=== PATIENT | male | born 1960 | race Caucasian/White ===

== ENCOUNTER 2018-05-01 10:41 | Inpatient (IN) | payer MEDICARE ==
[~2018-05-01] VITALS: Ht 182.9 cm; Wt 61.8 kg
[~2018-05-01 10:41] MED LIST: AMPYRA; AUBAGIO14 MG PO; BECL40OI INH; BETASERON SC; CITA20 PO; CYAN1000 PO; CYCL10 PO; DIAZ10 PO; DIAZ5 PO; HYDACE5 PO; MEDICAL MARIJUANA; METPHE10 PO; METPHE20 PO; MORP30 PO; NUVIGIL; OLAN10; OXYACE5T PO; PERCOCET PO; PRAV20; PREG100 PO; RXCLIN PO; RXOXYACE PO; Zyprexa10 MG PO; [UNRECOGNIZED DRUG - OTHER]; [UNRECOGNIZED DRUG - OTHER] INJ
[2018-05-01 13:00] LABS: BASOPHILS ABSOLUTE AUTO 0.07 K/mm3 (0.00-0.23); BASOPHILS PERCENT AUTO 1 % (0-2); EOSINOPHILS ABSOLUTE AUTO 0.09 K/mm3 (0.00-0.68); EOSINOPHILS PERCENT AUTO 1 % (0-6); Hemoglobin 15.6 g/dL (13.5-17.5); IMMATURE GRAN ABSOLUTE AUTO 0.04 K/mm3 (0.00-0.10); IMMATURE GRAN PERCENT AUTO 0 % (0-1); LYMPHOCYTES ABSOLUTE AUTO 2.07 K/mm3 (0.84-5.20); LYMPHOCYTES PERCENT AUTO 19 % (21-46); MONOCYTES ABSOLUTE AUTO 0.76 K/mm3 (0.16-1.47); MONOCYTES PERCENT AUTO 7 % (4-13); Mean Corpuscular HGB 31.1 pg (26.0-34.0); Mean Corpuscular HGB Conc 33.9 g/dL (31.5-36.5); Mean Corpuscular Volume 92 fL (80-100); Mean Platelet Volume 8.8 fL (9.1-12.4); NEUTROPHILS ABSOLUTE AUTO 7.66 K/mm3 (1.96-9.15); NEUTROPHILS PERCENT AUTO 72 % (41-73); Platelet Count 438 K/mm3 (150-400); RDW Coefficient Variation 12.3 % (11.7-14.2); RDW Standard Deviation 41.6 fL (35.1-46.3); Red Blood Cell Count 5.02 M/mm3 (4.30-5.90); White Blood Cell Count 10.69 K/mm3 (4.00-11.30)
--- NOTE | 2018-05-01 13:00 | NUR ---
INITIAL PAL CARE VISIT: Visit to pt in ER#14 after getting current status and clinical info from pt's RN and ER Dr. Pt corroborates information I received, stating that he has struggled with MS and its progression for years. He fell at home a month ago after his feet became tangled in a phone cord when he got up from his desk. He pulled the phone cord out of the wall in the fall and could not call for help. His father found him down on the floor two days later and pt convinced family not to bring him to a dr for eval at that time. Prior to the fall pt was independent with a walker but has had increased loss of balance and strenght, even before the fall. Since the fall pt has been unable to walk, bathe, toilet or feed himself. Family and friends have been helping to some degree with keeping him fed. Today they all arrived at his home in an intervention style way and brought him to the ER for help. Pt is self-admittedly stubborn and has refused care he needed. He states he does not have a PCP currently and the last Dr he saw was Dr Davis. He states he has not been on any of his MS meds because they didn't seem to help. He uses smoked cannibis for pain and anxiety relief. He has been on opiodes in the past but does not want to take them because he feels he nearly overdosed on them a number of times when he took them as directed. He has applied for medicaid and it sounds like a State worker saw him at his home on Wednesday. He understood her to say that he qualified for 4 hours of care daily but he has no idea when that was set to begin. His ER room had overpowering foul odor of old urine. Pt is thin, frail appearing and very weak in moving extremities. He reports 6/10 pain all over. He had his sweats on and had a large amt of stool and urine caked on him and his clothing. I requested help with cleaning him and his clothing. BULL ruiz washed his clothing and gave him a bed bath. BULL ruiz also noted difuse skin breakdown all along his right side that in her description would be multiple stage 1 - stage 4 wounds and abraisions. She also reported nails growing over and curling on the underside of pt's toes. I spent 40 minutes talking with pt about his current condition, disease process and MS progression. He acknowledges he's been in denial about his MS. He was tearful in talking about his terror with falls at home, grief r/t loss of independence and having his own apartment. I encouraged him to work closely with a PCP and his neurologist for problem solving as his disease progressed and to be working on a Plan A, B, & C to include considering placement in a [facility] or facility that he could have some peace knowing he'd have help if he needed it. Pt has parents locally and friends but no one that could care for him in his home or theirs, he states. If pt is admitted, I would recommend PT/OT evals BETHEL and treatment in attempt to return Bill to his pre-fall function of semi-independent. If pt does not qualify for an in-pt stay I would recommend HH PT/OT and RN for rehab services and wound care, and also a LEARNING AND DEVELOPMENT SPECIALIST to assist with obtaining assistance and researching community resources he may be eligible for and a GREASE PACKER for personal care. Pt needs a podiatry referral whether he is admitted or not to assist with foot care, especially if he is to regain ambulation/function. I stressed to pt that he must obtain a PCP for his ongoing care needs. Time spent just listening to pt express his fears and grief. If pt is admitted, Pal Care will follow to further address advanced care planning, completing an AD/POLST and s/s management.
[2018-05-01 13:13] LABS: Alanine Aminotransfer (ALT/SGP 13 U/L (12-78); Albumin, Blood 3.2 g/dL (3.4-5.0); Albumin/Globulin Ratio 0.8 (0.8-1.8); Alk Phos 112 U/L (50-136); Anion Gap 10 mmol/L (6-16); Aspartate Aminotrans (AST/SGOT 9 U/L (12-37); Bilirubin, Total 0.3 mg/dL (0.1-1.0); Blood Urea Nitrogen 13 mg/dL (8-24); Bun/Creatinine Ratio 22.8 (12.0-20.0); CO2, Blood 25 mmol/L (21-32); Calcium, Blood 8.7 mg/dL (8.5-10.1); Chloride, Blood 106 mmol/L (98-108); Creatinine, Blood 0.57 mg/dL (0.60-1.20); Globulin, Blood 3.8 g/dL (2.2-4.0); Glomerular Filtration Rate >60 (60-); Glucose, Blood 97 mg/dL (70-99); Magnesium, Blood 2.2 mg/dL (1.6-2.4); Potassium, Blood 3.9 mmol/L (3.5-5.5); Sodium, Blood 141 mmol/L (136-145)
--- NOTE | 2018-05-01 15:11 | NUR ---
Report to DONALD Coronel on summary of my note and recommendations given by phone.
[2018-05-01 15:56] LABS: Source, Urine Voided
[2018-05-01 16:08] LABS: Bilirubin, Urine Neg (Neg); Blood, Urine 4+ (Neg); Glucose Qualitative, Urine Neg (Neg); Ketones, Urine Neg (Neg); Leukocyte Esterase, Urine Neg (Neg); Nitrite, Urine Neg (Neg); Protein, Urine Neg (Neg); Specific Gravity, Urine 1.015 (1.003-1.022); Urobilinogen, Urine NORM (Normal)
[2018-05-01 16:29] LABS: Appearance, Urine Clear (Clear); Color, Urine Yellow (P-Yellow)
[2018-05-01 16:31] LABS: Bacteria Not Seen /hpf; Red Blood Cells, Urine 25-50 /hpf (0-2); Squamous Epithelial Cells Rare /hpf (Few); White Blood Cells, Urine Not Seen /hpf (0-5)
--- NOTE | 2018-05-01 19:44 | NUR ---
ADMIT ED ADMIT AT SHIFT CHANGE. PATIENT SETTLED IN TO ROOM. DENIES SHORTNESS OF BREATH, NAUSEA. REQUEST FOR PAIN MEDICATION PASSED ON TO NOC NURSE IN REPORT. CALL LIGHT IN REACH.
--- NOTE | 2018-05-01 22:21 | NUR ---
WOUNDS PT HAS SEVERAL WOUNDS AND PRESSURE ULCERS THROUGHOUT BODY. BACK IS SCATTERED WITH SCABS AND OPEN WOUNDS. STAGE 3 PRESSURE ULCER TO COCCYX. TWO MORE PRESSURE ULCERS ON R HIP, STAGE 2 AND 3. WOUNDS CLEANED AND DRESSING. SEE PHOTO DOCUMENTATION.
[2018-05-02 05:50] LABS: Anion Gap 11 mmol/L (6-16); Blood Urea Nitrogen 13 mg/dL (8-24); Bun/Creatinine Ratio 20.5 (12.0-20.0); CO2, Blood 22 mmol/L (21-32); Calcium, Blood 8.7 mg/dL (8.5-10.1); Chloride, Blood 108 mmol/L (98-108); Creatinine, Blood 0.64 mg/dL (0.60-1.20); Glomerular Filtration Rate >60 (60-); Glucose, Blood 148 mg/dL (70-99); Sodium, Blood 141 mmol/L (136-145)
--- NOTE | 2018-05-02 06:33 | NUR ---
SHIFT SUMMARY: PT A NEW ADMIT AT START OF SHIFT. PT ADMIITED FOR PHYSICAL DECONDITIONING, WITH A 20 YR HX OF MS. PT REPORTEDLY IS BEDBOUND, INCONTINENT, AND HAS NOT BEEN ABLE TO COMPLETE ANY ADLs X1 MONTH. PT HAS SEVERAL PRESSURE ULCERS ON COCCYX AND BILATERAL HIPS, SEE PRIOR NOTE. WOUNDS CLEANED, DRESSED, AND PHOTO DOCUMENTED. Q2H REPOSITIONNIG. ATTENDS CHANGE Q 1-2 HRS. EGG CRATE MATTRESS PLACED. LIFT FOR TRANSFER. A&O X 4, TEARFUL AND UPSET WITH DISEASE PROCESS. PRN HYDRALAZINE ADMINISTERED 1X FOR BP OF 194/101. BP NOW 160/90. NS RUNNING @ 75 ML /HR. RESP E/U ON ROOM AIR. WILL CONT TO MONITOR AND PROVIDE CARE UNTIL PRESUMED BY ONCOMING RN.
--- NOTE | 2018-05-02 08:40 | NUR ---
PROVIDER CONSULT ORTHO CONSULT CALLED TO DR GARNER'S CELL PHONE.
--- NOTE | 2018-05-02 11:46 | NUR ---
Spiritual care visit conducted. Patient invited me into his room after I introduced myself and stated what department I am from. Therapeutic alliance was easily established and so patient openly shared about his 20 year yang with M.S., his Confucianism belief system and his struggle with depression. I listened empathically, I provided companionship, I reinforced helpful attitudes and practices, explored soureces of meaning and dignity, I provided a blessing. Patient responded well and showed signs of an elevated mood.
--- NOTE | 2018-05-02 14:26 | NUR ---
Pt visit this afternoon. Pt's parents Shawn and Hailey are present during visit. Pt reports a tolerable 3/10 pain and reports his pain is managed with current regimen. Engaged in therapeutic conversation about Pt's goals. Pt reports his goals are to return to [place] and live as independent as possible. He undersands that it will take some time to regain in strength. Pt's mother Hailey reports the Pt is set up through senior services and people with disabilities. He will recieve 4 hours a day of care. Instructed Hailey to ask block and case maker to re-evaluate his needs and hours. Instructed her that in Pt's current condition 4 hours a day may not be sufficiant. Hailey also reports the Pt has an advanced directive and she will bring in a copy of AD and POA. Pt and family report no other concerns at this time. Will remain available.
--- NOTE | 2018-05-02 19:09 | NUR ---
DR GARNER IN TO SEE PT TODAY, SEE HIS NOTES. NO ACUTE CHANGES NOTED THIS SHIFT. WILL CONTINUE TO MONITOR AND REPORT TO ONCOMING RN.
--- NOTE | 2018-05-02 22:39 | NUR ---
PERSONAL CARE BED BATH, WOUND CLEANING + DRSSING CHANGE, SRINATH CARE, BED CHANGE ALL COMPLETED AT THIS TIME WITH ASSISTANCE OF CHEF UNDER.
[2018-05-03 06:06] LABS: Anion Gap 9 mmol/L (6-16); Blood Urea Nitrogen 20 mg/dL (8-24); Bun/Creatinine Ratio 26.8 (12.0-20.0); CO2, Blood 23 mmol/L (21-32); Calcium, Blood 8.2 mg/dL (8.5-10.1); Chloride, Blood 110 mmol/L (98-108); Creatinine, Blood 0.75 mg/dL (0.60-1.20); Glomerular Filtration Rate >60 (60-); Glucose, Blood 93 mg/dL (70-99); Potassium, Blood 3.6 mmol/L (3.5-5.5); Sodium, Blood 142 mmol/L (136-145)
--- NOTE | 2018-05-03 07:09 | NUR ---
SHIFT SUMMARY: ATTEMPTED TO PLACE PT IN R SHOULDER IMMOBILIZER. PT COULD NOT TOLERATE THE IMMOBILIZER AND REFUSED TO WEAR IT AFTER A FEW HRS. TREATED 1X FOR PAIN WITH IV TORADOL. VSS. RESP E/U ON RA. PERSONAL CARE AND WOUND CARE COMPLETE, SEE PRIOR NOTE. Q2H TURNS IMPLEMENTED. SALINE LOCKED AT THIS TIME. WILL CONT TO MONITOR AND PROVIDE CARE UNTIL PRESUMED BY ONCOMING RN.
--- NOTE | 2018-05-03 16:45 | NUR ---
Pal Care visit: Pt known to me from his ER/admit visit two days ago. He is smiling in bed and very pleased with his progress with PT today. He was able to stand w/assist for the first time since his fall a month ago and he is feeling very accomplished about that. He showed me the bed exercises PT had given him. We talked at length about his strengths and ongoing health maintenance needs for improved quality of life. We discussed advanced care planning for when he could no longer live independently due to the progression of his MS. Pt's friends had cleaned his apartment and purchased a new lift chair for him. He is enthusiasticly excited about the plan for in patient rehabilitation and eventual return to home, hopefully being able to walk again. He states he is going to take full advantage of all the opportunities being given to him. We discussed his s/s management and he is pleased to be getting relief with toradol and tylenol. He mentioned his HTN and need for f/u and management of that. He said someone is helping him get a PCP. I case conferenced on his plan of care and needs earlier with Lulu Robledo and his hospitalist.
--- NOTE | 2018-05-03 18:30 | NUR ---
PT C/O PAIN AT BREAKFAST AND DINNER TIME, SAYS SPOILS HIS APPETTITE. MEDICATED WITH PO TYLENOL AND IV TORADOL, SEE EMAR, TO GOOD EFFECT, PT EXPERIENCED PAIN RELIEF AND ABLE TO EAT. NO ACUTE CHANGES NOTED THIS SHIFT, WILL CONTINUE TO MONITOR AND REPORT TO ONCOMING RN
--- NOTE | 2018-05-04 02:37 | NUR ---
-LATE ENTRY- PER PALLIATIVE CARE REPORT AND PHYSICIAN PROGRESS NOTE FROM TODAY PT WAS REPORTED TO BE IN GOOD SPIRITS AND EXCITED ABOUT STARTING REHAB TO REGAIN HIS STRENGTH. WHEN I FIRST ENTERED PT'S ROOM AT START OF SHIFT PT WAS TEARFUL AND VERY DEPRESSED. PT EXPRESSED CONCERN REGARDING THE PROGRESSION OF HIS MS. PT STATED "ITS BEEN 20 PLUS YEARS OF PAIN AND I DON'T KNOW HOW MUCH LONGER I CAN DEAL WITH ALL OF THIS". PT CALLED HIS MOTHER JUAN C ON THE PHONE "BECAUSE SHE HELPS ME RELAX AND FEEL BETTER". THIS RN SPOKE WITH JUAN C ON THE PHONE WITH PERMISSION OF PT. JUAN C EXPRESSED CONCERN REGARDING PT'S PAIN MEDS AND STATED IN THE PAST PT HAS HAD REACTIONS TO DIFFERENT PAIN MEDS BY BECOMING DEPRESSED. EXPLAINED TO PT'S MOTHER THAT PT WAS RECIEVING IV TORADOL AND TYLENOL FOR PAIN WHICH WAS HELPING PT ADEQUATELY. PT HAD ALSO RECIEVED TEMAZEPAM THE LAST 2 NIGHTS BEFORE BED TO HELP WITH SLEEP. PT DOES NOT NORMALLY TAKE THESE MEDS AT HOME AND ONLY USES MEDICAL MARIJUANA FOR PAIN CONTROL. PT'S MOTHER EXPRESSED CONCERN THAT MAYBE TORADOL OR TEMAZEPAM WAS CAUSING PT'S CHANGE IN MOOD. SPOKE WITH HALLE GALLEGOS REGARDING THIS, WHO GAVE ORDER TO HOLD ANY FURTHER DOSES OF TEMAZEPAM AND TO CONTINUE MONITORING PT AT THIS TIME. THIS RN CALLED PT'S MOTHER JUAN C BACK REGARDING MD ORDERS, EXPLAINED THAT WE WOULD HOLD THE TEMAZEPAM AND THAT PT WAS MORE CALM AT THAT TIME. JUAN C GRATEFUL FOR CALL BACK. AT THIS TIME PT IS CALM AND RESTING. WILL PASS INFORMATION OFF TO DAY SHIFT RN AND CONTINUE TO MONITOR.
--- NOTE | 2018-05-04 04:47 | NUR ---
CARPENTER GENERAL SUMMARY PT AAOX4 AND COOPERATIVE WITH CARE. PT DEPRESSED AND UPSET AT START OF SHIFT, SEE PREVIOUS NOTE FOR DETAILS. SINCE SPEAKING WITH HIS MOTHER PT HAS BEEN CALM AND MUCH MORE POSITIVE. PT STATES "I'M NOT SURE WHY I WAS SO DOWN ON MYSELF BUT I KNOW I NEED TO KEEP FIGHTING THIS MS AND DOING MY BEST TO REGAIN MY STRENGTH". PT HAS RESTED MOST OF THE NIGHT WITH HELP REPOSITIONING Q2H OR PT ALLOWS. TREATED FOR PAIN X1 WITH TORADOL AND TYLENOL WITH GOOD PAIN RELIEF. VSS, WILL CONTINUE TO MONITOR.
[2018-05-04 05:40] LABS: Anion Gap 8 mmol/L (6-16); Blood Urea Nitrogen 17 mg/dL (8-24); Bun/Creatinine Ratio 22.7 (12.0-20.0); CO2, Blood 25 mmol/L (21-32); Calcium, Blood 8.4 mg/dL (8.5-10.1); Chloride, Blood 107 mmol/L (98-108); Creatinine, Blood 0.75 mg/dL (0.60-1.20); Glomerular Filtration Rate >60 (60-); Glucose, Blood 87 mg/dL (70-99); Potassium, Blood 3.9 mmol/L (3.5-5.5); Sodium, Blood 140 mmol/L (136-145)
--- NOTE | 2018-05-04 18:19 | NUR ---
SHIFT SUMMARY PT UP TO CHAIR THIS AFTERNOON WITH PHYSICAL THERAPY. PT SAT IN CHAIR FOR 2 HOURS OR SO. PT REPORTS FEELING BETTER UP IN CHAIR. MEDICATED FOR RIGHT SHOULDER PAIN X2 THIS SHIFT. PAIN MEDICATION EFFECTIVE AND PT WAS SLEEPING THIS AFTERNOON AFTER RECEIVING PAIN MEDICATION. PT HAS HAD A GOOD APPETITE. NO ACUTE CHANGES THIS SHIFT. CALL LIGHT IN REACH. WILL CONTINUE TO MONITOR AND REPORT TO ONCOMING RN.
--- NOTE | 2018-05-05 04:50 | NUR ---
THREAD WINDER SUMMARY NO ACUTE CHANGES THIS SHIFT. PT AAOX4 AND PLEASANT/COOPERATIVE WITH CARE. GOOD PAIN CONTROL WITH NEW ULTRAM STARTED DURING DAY SHIFT. PT REPORTS ALMOST NO PAIN EVEN WHEN REPOSITIONING. PT REMAINS INCONTINENT, REQUIRING FREQUENT ATTENDS CHANGES. PT ALSO REPOSITIONED ALLOWED BY PT. VSS, WILL CONTINUE TO MONITOR.
[2018-05-05] MEDS ORDERED: AMLO5 PO (10:41)
[2018-05-05] MEDS ORDERED: NAPR500 PO (10:42)
[2018-05-05] MEDS ORDERED: TRAM50 PO (10:43)
[2018-05-05] MEDS ORDERED: LISI5 PO (10:44)
--- NOTE | 2018-05-05 11:36 | NUR ---
WOUNDS REDRESSED PT SACRAL & HIP WOUNDS REDRESSED & NEW PICTURES TAKEN. WILL CONTINUE TO MONITOR.
--- NOTE | 2018-05-05 15:06 | NUR ---
REPORT CALLED TO MISSY JOHANSEN NURSE, ROBERTO, CALLED & GIVEN REPORT. NURSE STATED SHE HAD NO FURTHER QUESTIONS & A CALL BACK NUMBER WAS LEFT IF NEEDED. PT IN STABLE CONDITION WITH VSS.
--- NOTE | 2018-05-05 15:55 | NUR ---
PT DISCHARGED PT DISCHARGED AT 1550. PT IN STABLE CONDITION WITH VSS. REPORT CALLED TO MISSY JOHANSEN. PT SENT WITH DC PACKET & HARD SCRIPT. IV REMOVED & INTACT.
== END 2018-05-05 15:44 | DRG 563 ==
LOC: ER 10:41 → MEDS 10:42 → ENPENDDIS 05-05 11:16 → MEDS 05-05 15:44
PROVIDERS: Emergency Medicine; Nurse Practitioner Acute Care; ADMIT Internal Medicine
DX: S42.213A Unspecified displaced fracture of surgical neck of unspecified humerus, initial encounter for closed fracture (principal); R64 Cachexia; G35 Multiple sclerosis; Y92.9 Unspecified place or not applicable; Z74.01 Bed confinement status; G89.29 Other chronic pain; R53.81 Other malaise; L89.92 Pressure ulcer of unspecified site, stage 2; R32 Unspecified urinary incontinence; E86.0 Dehydration; Z68.20 Body mass index [BMI] 20.0-20.9, adult; I10 Essential (primary) hypertension; W18.30XA Fall on same level, unspecified, initial encounter; R15.9 Full incontinence of feces
CPT/HCPCS: 36415; 71046; 73030; 80048; 80053; 81001; 83735; 85025; 96361; 96374; 96375; 97110; 97112; 97163; 97166; 97530; 97535; 99284-25; G0378; J0360; J1885; J2930; J3010; J7030

== ENCOUNTER 2020-04-29 09:14 | Inpatient (IN) | payer MEDICARE, OTHER ==
[~2020-04-29] VITALS: Ht 182.9 cm; Wt 61.9 kg
[~2020-04-29 09:14] MED LIST changes: +AMLO5 PO; +LISI5 PO; +NAPR500 PO; +TRAM50 PO
[2020-04-29 09:58] LABS: BASOPHILS ABSOLUTE AUTO 0.07 K/mm3 (0.00-0.23); BASOPHILS PERCENT AUTO 1 % (0-2); EOSINOPHILS ABSOLUTE AUTO 0.01 K/mm3 (0.00-0.68); EOSINOPHILS PERCENT AUTO 0 % (0-6); Hematocrit 48.1 % (37.0-53.0); Hemoglobin 16.5 g/dL (13.5-17.5); IMMATURE GRAN ABSOLUTE AUTO 0.04 K/mm3 (0.00-0.10); IMMATURE GRAN PERCENT AUTO 0 % (0-1); LYMPHOCYTES ABSOLUTE AUTO 1.54 K/mm3 (0.84-5.20); LYMPHOCYTES PERCENT AUTO 11 % (21-46); MONOCYTES ABSOLUTE AUTO 1.16 K/mm3 (0.16-1.47); MONOCYTES PERCENT AUTO 9 % (4-13); Mean Corpuscular HGB Conc 34.3 g/dL (31.5-36.5); Mean Corpuscular Volume 93 fL (80-100); Mean Platelet Volume 9.6 fL (9.1-12.4); NEUTROPHILS ABSOLUTE AUTO 10.68 K/mm3 (1.96-9.15); NEUTROPHILS PERCENT AUTO 79 % (41-73); Platelet Count 384 K/mm3 (150-400); RDW Coefficient Variation 11.7 % (11.7-14.2); RDW Standard Deviation 40.3 fL (35.1-46.3); Red Blood Cell Count 5.15 M/mm3 (4.30-5.90)
[2020-04-29 10:16] LABS: Alanine Aminotransfer (ALT/SGP 23 U/L (12-78); Albumin, Blood 3.8 g/dL (3.4-5.0); Alk Phos 78 U/L (50-136); Aspartate Aminotrans (AST/SGOT 18 U/L (12-37); Bilirubin, Total 0.6 mg/dL (0.1-1.0); Blood Urea Nitrogen 14 mg/dL (8-24); Bun/Creatinine Ratio 22.5 (12.0-20.0); CO2, Blood 23 mmol/L (21-32); Calcium, Blood 8.7 mg/dL (8.5-10.1); Creatinine, Blood 0.62 mg/dL (0.60-1.20); Globulin, Blood 3.7 g/dL (2.2-4.0); Glomerular Filtration Rate >60 (60-); Glucose, Blood 114 mg/dL (70-99); Total Protein, Blood 7.5 g/dL (6.4-8.2); Troponin I 0.019 ng/mL (0.000-0.040)
[2020-04-29 10:20] LABS: Anion Gap 9 mmol/L (6-16); Chloride, Blood 108 mmol/L (98-108); Sodium, Blood 140 mmol/L (136-145)
--- NOTE | 2020-04-29 17:57 | NUR ---
SHIFT SUMMARY PT ADMITTED TO UNIT FROM THE ER. VS STABLE. PT ON 10L VIA OXYMIZER UPON ADMISSION AND NOW ON 6L. DR. POLANCO IN TO PLACE THORAVENT TO SUCTION. LS INCREASING TO LLL. HR SINUS TACH. BP STABLE. PT COMPLAINS OF PAIN TO "LUNGS" SINCE CHEST TUBE PLACED TO SUCTION. PT MEDICATED PER EMAR. PT INCONTINENT OF BOWEL AND BLADDER. ATTENDS IN PLACE AND DRY AT THIS TIME. PT ABLE TO REPOSITION HIMSELF, BUT ENCOURAGED TO DO SO. WILL CONTINUE TO MONITOR AND REPORT TO ONCOMING RN. CALL LIGHT IN REACH.
--- NOTE | 2020-04-30 04:37 | NUR ---
SHIFT SUMMARY NO ACUTE CHANGES THIS SHIFT. VSS. AXO. ON 3L OXYMIZER WITH SPOT RANGING FROM 92% - 96%. BREATH SOUNDS AUSCULTATED T/O L LUNG. THORAVENT REMAINS TO [id number] SUCTION. PAIN ASSOCIATED WITH L LUNG CONTROLLED WITH PAIN MEDS PER EMAR. INCONTINENT TO BASELINE, STAFF ASSISTING WITH THIS. OTHERWISE, PT RESTING OFF AND ON T/O SHIFT. WILL CONTINUE TO MONITOR UNTIL SHIFT CHANGE.
--- NOTE | 2020-04-30 04:42 | NUR ---
SHIFT SUMMARY NO ACUTE CHANGES THIS SHIFT. VSS. REMAINAS ON RA. MOTHER IN ROOM WITH PERMISSION - CAREGIVER. CELLULITIS REDNESS TO R LEG REMAINS WITHIN MARKER BOUNDARIES DRAWN YESTERDAY. LITTLE PAIN REPORTED BY PT TO THIS AREA. PT UP TO BATHROOM A FEW TIMES THIS SHIFT BUT HAS OTHERWISE BEEN RESTING QUIETELY. USES CALL LIGHT APPROPRIATELY. ELIUD LCONTINUE TO MONITOR UNTIL SHIFT CHANGE.
[2020-04-30 12:14] LABS: Hematocrit 45.1 % (37.0-53.0)
[2020-04-30 12:28] LABS: Anion Gap 6 mmol/L (6-16); Blood Urea Nitrogen 20 mg/dL (8-24); Bun/Creatinine Ratio 32.6 (12.0-20.0); CO2, Blood 26 mmol/L (21-32); Calcium, Blood 8.4 mg/dL (8.5-10.1); Chloride, Blood 109 mmol/L (98-108); Creatinine, Blood 0.61 mg/dL (0.60-1.20); Glomerular Filtration Rate >60 (60-); Glucose, Blood 88 mg/dL (70-99); Sodium, Blood 141 mmol/L (136-145)
--- NOTE | 2020-04-30 18:12 | NUR ---
SHIFT SUMMARY PT ALERT AND ORIENTED. VS STABLE. PT TITRATED TO 2L NC WITH SATS REMAINING ABOVE 90%. BP STABLE. HR NSR. TELEMETRY DC'D THIS SHIFT. PT MEDICATED FOR PAIN NEEDED AND REPOSITIONED Q2H. CHEST TUBE TO SUCTION. WILL CONTINUE TO MONITOR AND REPORT TO ONCOMING RN CALL LIGHT IN REACH.
--- NOTE | 2020-05-01 05:27 | NUR ---
SHIFT SUMMARY NO ACUTE CHANGES THIS SHIFT. VSS. AXO. ON 2LNC, SPO2 >94%. THORAVENT REMAINS IN PLACE, SECURE, SUCTION TO [id number]. PT TOLERATING OK WITH BREAKTHROUGH PAIN THAT MEDS PER EMAR HELP BUT DO NOT FULLY COVER. PT WITH ATTENDS CHECKS BY STAFF DUE TO INCONTINENCE. OTHERWISE, PT RESTING IN ROOM AND USES CALL LIGHT APPROPRIATELY. ELIUD LCONTINUE TO MONITOR.
--- NOTE | 2020-05-01 08:38 | NUR ---
TRANSFER TO MEDICAL: PT ALERT ADN ORIENTED X4. ON 2 L NASAL CANNULA SATING ABOVE 92%. DENIES CHEST PAIN. TELLS ME OF LUNG PAIN HE HAS BEEN HAVING OFF AND ON AND THAT CURRENTLY THIS MORNING THE PAIN IS NOT PRESENT DUE TO PAIN MEDS HE RECIEVED EARLIER. LACK OF FINE MOTOR SKILLS, HX OF MS. WEAKNESS THROUGHOUT. WHEELCHAIR BOUND AT HOME. ON BEDREST. Q2 TURNING. L UPPER THORAVENT HOOKED UP TO CONTINUOUS SUCTION. NO DRAINAGE THIS AM. DRESSING C/D/I. LUNG SOUNDS HEAD THROUGHOUT, DIMINISHED IN LLL. L AC IV SALINE LOCKED. WILL REPORT OFF TO MEDICAL FLOOR AND TRANSFER PATIENT.
--- NOTE | 2020-05-01 16:08 | NUR ---
1250 PT C/O LIGHT SOB. CHEST TUBE IS PRESENTLY ON WATER SOME BUBBLES WHEN EXHALE IN 2ND CHAMBER. CALLED DR MIJARES, SHE STATES TURN ON TO CONTINUOUS SUCTION AGAIN. CANCEL PENDING XRAY. DONE. 1330 PT STATES FEELS MUCH BETTER. NOT FEELING SOB.
--- NOTE | 2020-05-01 18:14 | NUR ---
PT SOMETIMES PLEASNT AND SOMETIMES ANGRY . STATES ABOUT MS CONDITION OVER 25 YRS. PAIN MANAGED WITH AVAIL MEDS. PT STATED TONITE THAT IS TIRED OF THIS , WANTS ME TO GET HIM WHEELCHAIR AND HE WILL TAKE SELF HOME. EXPLAINED NEED FOR CHEST TUBE. STATES DOES NOT CARE. CALLED DR MARIEE. SHE TO DISCUSS. SPIRITUAL CARE WAS CALLED IN TO SEE HIM. RECOMMENDING PALIATIVE CARE TO SEE ALSO. PALIATIVE CARE HERE AT THIS TIME. HE STATES CANNOT GET HELP. WANTS RIDE TO GO HOME. BED IN LOW POSITION, CALL LITE IN REACH, CALLS APPROP
--- NOTE | 2020-05-01 18:49 | NUR ---
Mr. gomes was quite distraught, tearful, and talkative. "I can't take this anymore!" "When will this end?" He appeared anxious and angry. He told me he wants to go home, but none of his care-gvers will pick him up. He is very upset about this. When asked why he wants to go home, he states, "So I can take myself out." Asked to clarify and he told me he wants to shoot himself in the head. Why asked why he is so miserable, he cannot tell me specifics. "I'm just tired of all this. Its been 25 years of it! I can't do it anymore." He states that he understands his illness is progressive. He does not want comfort care or hospice b/c "this would upset my dad too much." When I pointed out that his suicide would be a terrible thing for his dad, he yelled "I don't know what to do! No one will help me." I listened and affirmed his emotions. He did not calm or appear comforted at all. He did not appear to want anything from me but to be heard. Informed RN of pt's suicidal statements. I suggested a palliative care consult for symptom management. Pt smokes pot regularly. I can't help but wonder if something for anxiety would be beneficial. I will remain available.
--- NOTE | 2020-05-01 19:08 | NUR ---
Spoke with Dr Sosa and discussed case. Pt may benefit from supportive visit. Pt may be suicidal. Pt resting in bed upon arrival. Engaged in therapeutic listening as Pt discusses his current condition. Pt expresses frustration regarding his MS and is decline has had an impact on his mood. He states "I'm done, I can't do it anymore". Pt is requesting to be D/C home. Inquired about plan when he arrived home. Pt states "I will get high". Bedside RN Markie in to administer IV medication. Requested Pt to continue with conversation and asked what he would do after getting high. Pt states "I would slice my wrists, not side ways, but up and down". Continued therapeutic listening. Dr Sosa in to see Pt and offers therapeutic listening and validates concerns. Pt agreeable for this RN to visit tomorrow. Dr Sosa will place orders for Sucide watch and pysch consult. Palliative Care will remain available.
--- NOTE | 2020-05-01 19:21 | NUR ---
PT VERBALIZED SUICIDAL THOUGHTS. CALLED DR OLSON IN TO SEE. PLACED ON LOW LEVEL. WOOD HANDLER NOTIFIED. NEW ONCOMING RN NOTIFIED. PENDING ORDERS.
--- NOTE | 2020-05-02 07:13 | NUR ---
SHIFT SUMMARY PT IS A 60 Y/O MALE, ADMITTED FOR A L PNEUMOTHORAX WITH A CHEST TUBE IN PLACE TO LOW SUCTION. NO CREPITUS NOTED. PT IS A&O X 3, THOUGH WITHDRAWN AND DEPRESSED, AND REPEATEDLY STATING THAT "I NEED TO GET OUT OF HERE" AND "I WANT TO GO HOME". PT WAS PUT ON A LOW SUICIDE PRECAUTION AT THE END OF DAY SHIFT YESTERDAY. PT REPORTS HX OF MARIJUANA USE, AND STATES THAT "MARIJUANA WOULD BE ABLE TO TAKE CARE OF MY PAIN". PT WAS MEDICATED FOR PAIN Q4H WITH PRN FENTANYL AND OXYCODONE. NO C/O NAUSEA OR SOB. VITAL SIGNS STABLE. PT AWAKE THROUGH THE NIGHT. NO OTHER ACUTE CHANGES IN PT CONDITION NOTED DURING THE NIGHT. REPORT GIVEN TO ONCOMING RN.
--- NOTE | 2020-05-02 17:40 | NUR ---
SHIFT SUMMARY PATIENT ALERT AND ORIENTED THROUGHOUT THIS SHIFT. PATIENT SITTING UP IN BED THIS SHIFT. CHEST TUBE REMAINS IN PLACE, ON SUCTION. PATIENT REPORTS BREATHING EASIER THIS SHIFT. PATIENT MEDICATED THROUGHOUT THIS SHIFT FOR GENERALIZED PAIN. PATIENT CURRENTLY SITTING UP IN BED EATING DINNER.
[2020-05-03 04:52] LABS: BASOPHILS ABSOLUTE AUTO 0.07 K/mm3 (0.00-0.23); BASOPHILS PERCENT AUTO 1 % (0-2); EOSINOPHILS PERCENT AUTO 5 % (0-6); Hematocrit 41.9 % (37.0-53.0); Hemoglobin 14.3 g/dL (13.5-17.5); IMMATURE GRAN ABSOLUTE AUTO 0.02 K/mm3 (0.00-0.10); IMMATURE GRAN PERCENT AUTO 0 % (0-1); LYMPHOCYTES ABSOLUTE AUTO 2.26 K/mm3 (0.84-5.20); LYMPHOCYTES PERCENT AUTO 30 % (21-46); MONOCYTES ABSOLUTE AUTO 0.78 K/mm3 (0.16-1.47); MONOCYTES PERCENT AUTO 10 % (4-13); Mean Corpuscular HGB 31.8 pg (26.0-34.0); Mean Corpuscular HGB Conc 34.1 g/dL (31.5-36.5); Mean Corpuscular Volume 93 fL (80-100); Mean Platelet Volume 9.6 fL (9.1-12.4); NEUTROPHILS ABSOLUTE AUTO 3.98 K/mm3 (1.96-9.15); NEUTROPHILS PERCENT AUTO 53 % (41-73); Platelet Count 331 K/mm3 (150-400); RDW Coefficient Variation 11.5 % (11.7-14.2); RDW Standard Deviation 39.3 fL (35.1-46.3); White Blood Cell Count 7.51 K/mm3 (4.00-11.30)
[2020-05-03 05:06] LABS: Anion Gap 4 mmol/L (6-16); Blood Urea Nitrogen 15 mg/dL (8-24); Bun/Creatinine Ratio 20.5 (12.0-20.0); CO2, Blood 29 mmol/L (21-32); Chloride, Blood 108 mmol/L (98-108); Creatinine, Blood 0.73 mg/dL (0.60-1.20); Glomerular Filtration Rate >60 (60-); Glucose, Blood 96 mg/dL (70-99); Sodium, Blood 141 mmol/L (136-145)
--- NOTE | 2020-05-03 06:21 | NUR ---
SHIFT SUMMARY PT IS A 60 Y/O MALE, ADMITTED FOR L PNEUMOTHORAX. CHEST TUBE IN PLACE CURRENTLY TO LOW SUCTION. PT TAKES PAIN MEDS Q4H, FENTANYL AND PERCOCET. HIS PERCOCET DOSE WAS DECREASED TO 1 TABLET INSTEAD OF TWO, AND PT REPORTS "I FEEL BETTER" AND THAT "I FELT HIGH" WITH THE PREVIOUS DOSE. NO C/O SOB OR NAUSEA. VITAL SIGNS STABLE. PT SLEPT OFF AND ON DURING THE NIGHT. NO ACUTE CHANGES IN PT CONDITION NOTED. WILL CONTINUE TO MONITOR AND TREAT PER EMAR UNTIL HAND OFF TO DAY SHIFT RN.
--- NOTE | 2020-05-03 17:20 | NUR ---
SHIFT SUMMARY PATIENT ALERT AND ORIENTED IN THE ROOM. PATIENT CONTINUES TO HAVE CHEST TUBE ON SUCTION. PATIENT DENIES SHORTNESS OF BREATH THIS SHIFT. PATIENT MEDICATED FOR PAIN 2X THIS SHIFT. PATIENT SITTING UP IN BED THROUGHOUT THIS SHIFT. MENTAL STATUS MUCH IMPROVED THIS SHIFT. PATIENT TALKING ON THE PHONE AND CONVERSING WITH STAFF MORE THAN PREVIOUS SHIFT. PATIENT CURRENTLY SITTING UP WATCHING TELEVISION.
--- NOTE | 2020-05-03 22:04 | NUR ---
PT STATUS PT STATES HIS FENTANYL WAS DISCONTINUED. HE IS CRYING AND CALLING OUT. HE STATES HIS PAIN CONTROL IS NOT ADEQUATE. I HAVE NOW GIVEN HIM THE SECOND TABLET OF PERCOCET ALLOWED IN THE DOCTOR'S ORDER. WILL REASSESS
--- NOTE | 2020-05-04 03:58 | NUR ---
SHIFT SUMMARY ADMITTED FOR LEFT PNEUMOTHORAX. DNR CODE. CHEST TUBE IN PLACE. PT STATED PAIN CONTROL WAS INADEQUATE, SO I DID ADMINISTER THE FULL DOSE OF PERCOCET. I HEARD HIM CRYING AND CALLING OUT IN HIS ROOM. SEE PREVIOUS NOTE. ATIVAN ADMINISTERED TO GOOD EFFECT.
[2020-05-04 05:32] LABS: BASOPHILS ABSOLUTE AUTO 0.09 K/mm3 (0.00-0.23); BASOPHILS PERCENT AUTO 1 % (0-2); EOSINOPHILS ABSOLUTE AUTO 0.43 K/mm3 (0.00-0.68); EOSINOPHILS PERCENT AUTO 5 % (0-6); Hematocrit 44.9 % (37.0-53.0); IMMATURE GRAN ABSOLUTE AUTO 0.02 K/mm3 (0.00-0.10); IMMATURE GRAN PERCENT AUTO 0 % (0-1); LYMPHOCYTES ABSOLUTE AUTO 2.09 K/mm3 (0.84-5.20); LYMPHOCYTES PERCENT AUTO 24 % (21-46); MONOCYTES ABSOLUTE AUTO 0.96 K/mm3 (0.16-1.47); MONOCYTES PERCENT AUTO 11 % (4-13); Mean Corpuscular HGB 31.7 pg (26.0-34.0); Mean Corpuscular HGB Conc 33.4 g/dL (31.5-36.5); Mean Corpuscular Volume 95 fL (80-100); Mean Platelet Volume 9.3 fL (9.1-12.4); NEUTROPHILS ABSOLUTE AUTO 5.29 K/mm3 (1.96-9.15); NEUTROPHILS PERCENT AUTO 60 % (41-73); Platelet Count 339 K/mm3 (150-400); RDW Coefficient Variation 11.7 % (11.7-14.2); RDW Standard Deviation 40.8 fL (35.1-46.3); Red Blood Cell Count 4.73 M/mm3 (4.30-5.90); White Blood Cell Count 8.88 K/mm3 (4.00-11.30)
[2020-05-04 05:46] LABS: Anion Gap 8 mmol/L (6-16); Blood Urea Nitrogen 18 mg/dL (8-24); Bun/Creatinine Ratio 25.7 (12.0-20.0); CO2, Blood 26 mmol/L (21-32); Chloride, Blood 107 mmol/L (98-108); Glomerular Filtration Rate >60 (60-); Glucose, Blood 100 mg/dL (70-99); Potassium, Blood 4.3 mmol/L (3.5-5.5); Sodium, Blood 141 mmol/L (136-145)
[2020-05-04 16:56] LABS: Influenza A, PCR NEGATIVE (NEGATIVE); Influenza B, PCR NEGATIVE (NEGATIVE); Resp Syncytial Virus, PCR NEGATIVE (NEGATIVE); SARS-Cov-2 (COVID-19) PCR, MMC NEGATIVE (NEGATIVE)
--- NOTE | 2020-05-04 17:27 | NUR ---
SHIFT SUMMARY PT RESTING QUIETLY AT START OF SHIFT. CHEST TUBE TO LCW; PATENT. ONLY SM AMT OF BLOODY FLUID OUT TODAY. CXR DONE THIS AM. DR MARIEE IN TO SEE PT. NEW ORDERS PLACED AFTER XR RESULTS POSTED. BED BATH GIVEN THIS AM. PT MEDICATED PER EMAR FOR C/O PAIN TO R SHOULDER. HEATING PAD PLACED WELL. DR BARKLEY IN TO SEE PT THIS AFTERNOON. PT TO BE NPO FOR BREAKFAST. PER SHIFT REPORT, POSSIBLE LARGER CHEST TUBE WOULD NEED TO BE PLACED. PT REPOSITIONED THRU OUT THE DAY. INCONTINENT OF URINE. PT REPORTED NO BM FOR A FEW DAYS. PT REPORTED THAT NOT BEING UNUSUAL WITH MS. PT IS A&O AND HAS BEEN PLEASANT AND CO-OP. PT APPEARED TO BE IN BETTER SPIRITS ALL DAY TODAY. CALL LT IN REACH. ABLE TO MAKE NEEDS KNOWN.
--- NOTE | 2020-05-05 05:27 | NUR ---
SHIFT SUMMARY A/O, ABLE TO MAKE NEEDS KNOWN. COOPERATIVE WITH CARE. CALLS AND ANSWERS QUESTIONS APPROPRIATELY. C/O PAIN/DISCOMFORT T/O NIGHT THAT IS GENERALIZED IN NATURE; MEDICATED PER EMAR. APPEARED VERY FEARFUL/ANXIOUS THIS NIGHT; OT ORDER OF ATIVAN 0.5MG PER ON-CALL PHYSICIAN. CHEST TUBE REMAINS IN PLACE. APPEARED TO REST OFF AND ON OVERNIGHT. BP THIS AM HYPOTENSIVE; ASYMPTOMATIC. REPOSITIONED T/O SHIFT WITH ROUTINE ATTENDS CHECKS. BED REMAINS IN LOWEST POSITION. CALL LIGHT AND BELONGINGS WITHIN REACH. CONTINUE WITH CURRENT PLAN OF CARE. REPORT TO ONCOMING RN.
[2020-05-05 05:52] LABS: Anion Gap 6 mmol/L (6-16); Blood Urea Nitrogen 25 mg/dL (8-24); Bun/Creatinine Ratio 32.7 (12.0-20.0); CO2, Blood 27 mmol/L (21-32); Calcium, Blood 9.4 mg/dL (8.5-10.1); Chloride, Blood 106 mmol/L (98-108); Creatinine, Blood 0.77 mg/dL (0.60-1.20); Glomerular Filtration Rate >60 (60-); Glucose, Blood 99 mg/dL (70-99); Potassium, Blood 4.7 mmol/L (3.5-5.5); Sodium, Blood 139 mmol/L (136-145)
--- NOTE | 2020-05-05 15:22 | NUR ---
05/05/20 1522 Bharati Larson PT ON SCHEDULED ANTIBIOTIC
--- NOTE | 2020-05-05 17:56 | NUR ---
SHIFT SUMMARY PT AWAKE THIS AM AT START OF SHIFT. VERY IRRITABLE, ANXIOUS, AND NEEDY. PT NPO SINCE OR FOR PROCEDURE TODAY TO PLACE LARGE BORE CHEST TUBE. PT C/O ABOUT NOT KNOWING WHAT WAS GOING ON AND WHAT WAS HE WAITING FOR. PT CONTINUED TO BE IRRITABLE AND GRUMPY. DR HOLLOWAY IN TO SEE PT EARLY. OK'D FOR PT TO HAVE PO PAIN MEDICATION WHILE WAITING. PT WENT TO SLEEP FOR A WHILE, BUT CONTINUED TO BE VERY RUDE AND MEAN EVERY TIME HE WOKE UP. PT'S MOTHER, JUAN C, CALLED TO CK ON PT AND ASKED ABOUT PROCEDURE. UPDATE GIVEN. OR CALLED TO REPORT THAT THEY WOULD BE UP SOON TO GET PT FOR PROCEDURE. PT WAS SLEEPING, BUT WOKE TO LET HIM KNOW OF SCHEDULE. PT THEN SMILED. CHANGED ATTENDS FOR INCONTINENCE AND PT STATED THANK YOU. PT SEEMED TO BE MUCH MORE PLEASANT AFTER TAKING A NAP. PT RESTATED THAT HE DID NOT WANT TO RECEIVE BLOOD IF NEEDED FOR PROCEDURE. BLOOD CONSENT VERIFIED WITH PT AGAIN AND JOSUE BENNETT ALSO UPDATED OF CONSENT ON CHART. PT TAKEN DOWN TO PROCEDURE VIA HIS OWN BED. JOSUE BENNETT SOON CALLED TO REPORT PROCEDURE COMPLETE AND PT TOLERATED VERY WELL. JOSUE REPORTED PROCEDURE TOOK ONLY 8 MINUTES USING SEDATION ONLY. MINIMAL EBL. PT GIVEN 5O MCG OF FENTANYL FOR PROCEDURE AND ANOTHER 5O MCG AFTER PROCEDURE. PT RETURNED TO ON 3L O2. CHEST TUBE RESET UP AND FUNCTIONING WNL'S. PT PRESENTLY SITTING UP AND EATING DINNER NO C/O. PT'S MOTHER, JUAN C, WAS CALLED WITH UPDATE WHEN PT RETURNED TO . CALL LT IN REACH.
--- NOTE | 2020-05-06 04:13 | NUR ---
SHIFT SUMMARY A/O, ABLE TO MAKE NEEDS KNOWN. COOPERATIVE WITH CARE. CALLS AND ANSWERS QUESTIONS APPROPRIATELY. C/O PAIN/DISCOMFORT TO R SHOULDER, RATED 5/10 WITH ADEQUATE RELIEF AFTER MEDICATING PER EMAR. UTILIZES HEATING PAD TO SHOULDER WELL. STATES ABILITY TO BREATH HAS SIGNIFICANTLY IMPROVED SINCE PLACEMENT OF NEW CHEST TUBE. REINFORCED SITE WITH MEDIPORE TAPE R/T LIFTING OF EDGES. DID NOT APPEAR TO REST MUCH OVERNIGHT. REPOSITIONED ROUTINELY WITH ATTENDS CHANGES. VSS/AFEBRILE. NO OTHER ACUTE CHANGES NOTED. BED REMAINS IN LOWEST POSITION. CONTINUE WITH CURRENT PLAN OF CARE. REPORT TO ONCOMING RN.
[2020-05-06 14:08] LABS: ALPHA-1-ANTITRYPSIN, SERUM 158 mg/dL (101-187)
--- NOTE | 2020-05-06 18:34 | NUR ---
SHIFT SUMMARY PT AOX4; PT IS WC AT BASELINE. PT STATED FEELING HOPELESS BECAUSE OF CONDITION; BUT DENIES OF ANY SUICIDAL IDEATION. HE STATED THAT "I AM BED BOUND, WHAT CAN I ACTUALLY DO?" ENCOURAGE THE PT TO EXPRESS FEELINGS AND CONCERNS. PT EDUCATED ABOUT THE HEALING PROCESS AND EXPLORE HIS THOUGHTS WHAT IS HIS "SHORT TERM GOALS" PT STATED HE JUST FEEL LIKE HE IS BEDBOUND AND CAN'T DO ANYTHING AT THIS TIME BECAUSE OF PAIN AND DECONDITIONING. THIS NURSE MEDICATED THIS PT FOR PAINX3 WHICH IS HIS BACK AND R SHOULDER. PT STATED HE CAN'T FEEL WHEN HE URINATES BECAUSE OF MS; EDUCATED THE SEQUENCING MACHINE OPERATOR THAT CHECKING THIS PT DEPENDS IS IMPORTANT. CHANGES NEEDED. PT REFUSED DINNER AND STATED NOT HUNGRY. PT ALSO ON 3L OF O2; HE STATED HE IS FEELING MUCH BETTER IN TERMS OF BREATHING. SATS ABOVE 90S. CHEST TUBE DRAINING AND INTACT. THIS NURSE MARKED THE OUTPUT TODAY; PLEASE MARKED THE NEXT SHIFT OUTPUT. PT WAS SEEN BY THE SURGEON TODAY AND WILL HAVE XRAY TOMORROW. BED IS IN THE LWOEST POSITION AND CALL LIGHT WITHIN REACH
--- NOTE | 2020-05-07 05:12 | NUR ---
SHIFT SUMMARY- PT. A&O, PLEASANT. WC BOUND AT BASELINE, HX OF MS. C/O BACK PAIN, MEDICATED PER EMAR WITH GOOD EFFECT. CHEST TUBE IN PLACE TO THE LT ANTERIOR, DRAINING SANGUINEOUS DRAINAGE. ON 3L NC, PT. STATES BREATHING HAS IMPROVED. NOTED RT SIDED DEFICIT, PT. STATES UNABLE TO MOVE RT LEG VERY MUCH. PT. RESTED QUIETLY T/O THE NIGHT, REPOSITIONED FOR COMFORT AND PRN. PT. CALLS APPROPRIATELY AND ABLE TO MAKE NEEDS KNOWN. VSS. CALL LIGHT WITHIN IN REACH AND SIDE RAILS UPX2. WILL CONT TO MONITOR.
--- NOTE | 2020-05-07 17:36 | NUR ---
HE HAS HAD A FAIR DAY. PORTABLE CXR DONE THIS AM. CT WAS CHANGED FROM SUCTION TO WATER SEAL TODAY BY THE DOCTOR. HE HAS HAD NO CHANGE IN HIS RESPIRATORY ASSESSMENT. HE DENIES SOB. HE HAS A LOOSE NON-PRODUCTIVE COUGH. O2 3L. HE EATS WELL AND DRINKS WELL. L LATERAL CT DRESSING D&I. NO AIR LEAK NOTED. HE DOES DRAIN RED DRAINAGE THROUGH THE TUBE. I WILL EMANUEL IT ON THE PLEURAVAC. HIS MOTHER JUAN C CALLED AND SAID SHE IS HIS P.O.A. AND WANTED US TO KNOW IT. MESSAGE PUT ON WHITE BOARD. I ENCOURAGED HER TO BRING IN A COPY. SHE SAID SHE DIDN'T KNOW IF SHE COULD. PERCOCETS GIVEN T/O THE DAY FOR HIS CHRONIC MS PAINS ALL OVER.
[2020-05-08 05:30] LABS: Hematocrit 43.8 % (37.0-53.0); Hemoglobin 14.8 g/dL (13.5-17.5); Mean Corpuscular HGB 31.7 pg (26.0-34.0); Mean Corpuscular HGB Conc 33.8 g/dL (31.5-36.5); Mean Corpuscular Volume 94 fL (80-100); Mean Platelet Volume 9.7 fL (9.1-12.4); Platelet Count 453 K/mm3 (150-400); RDW Coefficient Variation 11.5 % (11.7-14.2); RDW Standard Deviation 39.6 fL (35.1-46.3); Red Blood Cell Count 4.67 M/mm3 (4.30-5.90); White Blood Cell Count 10.33 K/mm3 (4.00-11.30)
[2020-05-08 05:48] LABS: Anion Gap 7 mmol/L (6-16); Blood Urea Nitrogen 23 mg/dL (8-24); Bun/Creatinine Ratio 34.2 (12.0-20.0); CO2, Blood 28 mmol/L (21-32); Calcium, Blood 9.1 mg/dL (8.5-10.1); Chloride, Blood 104 mmol/L (98-108); Creatinine, Blood 0.67 mg/dL (0.60-1.20); Glomerular Filtration Rate >60 (60-); Glucose, Blood 120 mg/dL (70-99); Sodium, Blood 139 mmol/L (136-145)
--- NOTE | 2020-05-08 08:13 | NUR ---
Patient quite painful through the night which he explained was his ongoing MS generalized pain. Lung sounds dim with some upper airway wheezing noted at start of shift. Patient was to water seal and having no difficulties with SOB, Crepetis or desaturation. towards morning, patient developed a harsh hacking cough, and shortly after that was taken down to xray. It was found that he again had developed an air leak and was placed back on suction upon returning to room.
--- NOTE | 2020-05-08 16:16 | NUR ---
PATIENT IS PLEASANT AND COOPERATIVE WITH STAFF. HE IS FINE WITH USING APAP FOR PAIN CONTROL IN PLACE OF PERCOCET. CALLS APPROPRIATELY FOR STAFF ASSISTANCE NEEDED. CHEST TUBE CONNECTED TO SUCTION AT -20 H20 PER ORDERS; PATIENT TOLERATING WITHOUT COMPLICATION. VITALS STABLE. NO CHANGES IN CONDITION TO REPORT OF AT THIS TIME. CALL LIGHT WITHIN REACH.
--- NOTE | 2020-05-08 21:35 | NUR ---
PHYSICIAN CORRESPONDENCE NOTABLE SPONGY ABDOMEN, WITH SCROTUM SWOLLEN LIKE A BALLOON, AND POTENTIAL CREPITUS NOTED. ASK THAT PHYSICIAN COME AND ASSESS.
--- NOTE | 2020-05-09 05:26 | NUR ---
PHYSICIAN CORRESPONDENCE DR. FUNES CALLED TO REPORT CHANGES TO CHEST XR. STATED THAT THERE ARE SIGNS OF IMPROVEMENT FROM PREVIOUS CXR DONE DURING DAY SHIFT 05/08/20. STATED TO CALL DR. BARKLEY THIS AM TO REPORT CHANGES IN SWELLING TO GROIN AND CREPITUS.
--- NOTE | 2020-05-09 07:45 | NUR ---
SHIFT SUMMARY A/O, ABLE TO MAKE NEEDS KNOWN. COOPERATIVE WITH CARE. CALLS AND ANSWERS QUESTIONS APPROPRIATELY. C/O PAIN/DISCOMFORT TO R SHOULDER WHICH IS CHRONIC; MEDICATED PER EMAR. CHANGES NOTED IN PAPER CHARTING AND PREV RN NOTES. VSS/AFEBRILE. PT REPORTS NO SOB AND APPEARS TO NOT BE IN ANY DISTRESS AT ALL. CHEST TUBE IN PLACE. ROUTINE ATTENDS CHECKS AND REPOSITIONING T/O SHIFT. BED REMAINS IN LOWEST POSITION. CALL LIGHT AND BELONGINGS WITHIN REACH. CONTINUE WITH CURRENT PLAN OF CARE. REPORT GIVEN TO ONCOMING RN.
--- NOTE | 2020-05-09 08:22 | NUR ---
DR. MARIEE AT BEDSIDE. DISCUSSED ASSESSMENT FINDINGS (LLQ AND SCROTAL EDEMA), ASKED THAT SHE CHECK CT SITE FOR CREPITUS, FOUND NONE AND NO EDEMA. CT SITE IS WNL. INFORMED HER THAT IT WAS ENDORSED TO THIS AUTHOR TO NOTIFY DR. BARKLEY OF CREPITUS ON L SIDE OF PATIENT'S BODY. DR. MARIEE STATED THAT THERE WAS NO NEED TO CALL DR. BARKLEY THERE WAS NO FINDING OF CREPITUS.
--- NOTE | 2020-05-09 09:14 | NUR ---
SPOKE TO DR. BARKLEY BY PHONE TO REPORT ASSESSMENT FINDINS. PROVIDER STATED THAT PT HAS HAD CREPITUS SINCE ADMISSION, SO FINDING IS NOT NEW. DESCRIBED BUBBLING IN CHEST TUBE COLLECTION DEVICE, HE STATED THIS WAS NORMAL WHEN HOOKED UP TO WALL SUCTION. NO FURTHER INTERVENTIONS ORDERED.
--- NOTE | 2020-05-09 18:31 | NUR ---
SHIFT SUMMARY: NO ACUTE EVENTS. PATIENT STATED THIS MORNING "THIS IS THE BEST I'VE FELT IN A WHILE", IN GOOD SPIRITS. PAIN WAS WELL CONTROLLED UNTIL 1729 WHEN HE REQUESTED PERCOCET FOR PAIN IN L CHEST INSERTION SITE. CHEST TUBE TO WALL SUCTION, NO CHANGE IN CREPITUS OR SWELLING ON L ABDOMEN AND SCROTUM. OUTPUT BECOMES MORE SANGUINOUS AFTER PATIENT HAS BEEN TURNING IN BED, THEN GOES BACK TO SEROUSOSANG. DENIED SOB, RESPS EVEN AND UNLABORED, CT OUPUT 31 ML THIS SHIFT. APPETITE OK, TAKING PO FLUIDS. GAVE UPDATE TO PATIENT'S MOTHER THIS AFTERNOON. WANTS TO GO HOME.
--- NOTE | 2020-05-10 06:30 | NUR ---
SHIFT SUMMARY A/O, ABLE TO MAKE NEEDS KNOWN. COOPERATIVE WITH CARE. CALLS AND ANSWERS QUESTIONS APPROPRIATELY. C/O PAIN/DISCOMFORT TO R SHOULDER AND THEN A HEADACHE; MEDICATED PER EMAR. VSS/AFEBRILE. NO OTHER ACUTE CHANGES. CONTINUES WITH CHEST TUBE TO SUCTION. PLAN TODAY TO TRY JUST WATER SEAL. VERY EAGER FOR HIS RETURN HOME. APPEARS TO BE IN GOOD SPIRITS. REPOSITIONED T/O SHIFT. BED REMAINS IN LOWEST POSITION. CALL LIGHT AND BELONGINGS WITHIN REACH. CONTINUE WITH CURRENT PLAN OF CARE. REPORT TO ONCOMING RN.
--- NOTE | 2020-05-10 19:43 | NUR ---
SHIFT SUMMARY: NO ACUTE EVENTS. CHEST TUBE TO WALL SUCTION, 21 ML OUT THIS SHIFT, DRESSING CD&I. DENIED CHEST PAIN AND SOB, RESP EVEN AND UNLABORED. CREPITUS PERSISTS. C/O PAIN IN CT INSERTION SITE X 1 AND R SHOULDER; HAS HEATING PAD ON SHOULDER, MEDICATED PER EMAR WITH SOME RELIEF. LBM 04/29/20; MOM AND SUPPOSITORY GIVEN WITHOUT RESULTS. APPETITE MODERATE TODAY. REALLY WANTS TO GO HOME.
--- NOTE | 2020-05-11 04:55 | NUR ---
SHIFT SUMMARY- PT. REPORTED RT SHOULDER VERY PAINFUL LAST NIGHT. MEDICATED PER EMAR WITH MINIMAL EFFECT AT FIRST. PT THEN STATED PAIN IMPROVED. REPOSITIONED FOR COMFORT AND PRN, ALSO HEATING PAD PLACED ON RT SHOULDER. CHEST TUBE IN PLACE AND TO WALL SUCTION. DSG C/D/I. BOWEL CARE GIVEN LAST NIGHT, NO RESULTS. VSS. CALL LIGHT WITHIN REACH AND SIDE RAILS UPX2. WILL CONT TO MONITOR.
--- NOTE | 2020-05-11 11:50 | NUR ---
PT C/O SOB. SATS ON RA WAS 93%; PLACED PT ON 2L O2; SATS CAME UP TO 96%. PT STATED SOB; CALLED RT FOR PRN TX. PT FELT BETTER AFTER THE TX.
--- NOTE | 2020-05-11 16:07 | NUR ---
SHIFT SUMMARY PT AOX4; PT STATED HE DID NOT SLEEP WELL LAST NIGHT BECAUSE OF PAIN AND TYLENOL DOES NOT HELP HIM. MEDICATED HIM X1 WITH PERCOCET TODAY; AND STATED FEELING BETTER. PT HAD A BED BATH. Q2 TURN NEEDED. PT IS NOW ON A 1-2L OF 02 PRN. PROTECTOR HEEL PLACED AND MEPELEX ON BUTTOM FOR PROTECTION. BED IS IN THE LOWEST POSITION AND CALL LIGHT WITHIN REACH
--- NOTE | 2020-05-11 19:58 | NUR ---
ASSESSED PT. PAIN LEVEL. PT. REPORTS 1/10 PAIN TO THE RT SHOOULDER AT THIS TIME. THIS NURSE OFFERED PAIN MEDICATION AND PLACEMENT OF HEATING PAD, PT. REFUSED PAIN MED BUT OK WITH HEATING PAD PLACEMENT. PERFORMED ATTENDS CHANGE, REPOSITIONED PT. AND APPLIED HEATING PAD TO RT SHOULDER. PT. STATES IS COMFORTABLE, DENIES ANY OTHER NEEDS AT THIS TIME. CALL LIGHT WITHIN REACH AND SIDE RAILS UPX2. WILL CONT TO MONITOR.
--- NOTE | 2020-05-12 06:14 | NUR ---
SHIFT SUMMARY- NO ACUTE EVENTS OVERNIGHT. PT. REPORTED PAIN TO RT SHOULDER 03/24 T/O THE ENTIRE SHIFT. PAIN ASSESSMENT DONE SEVERAL TIMES T/O THE SHIFT AND OFFERED PAIN MEDICATION. PT. DECLINED, STATED DID NOT NEED IT. MEDICATED WITH SCHEDULED TYLENOL PER EMAR, PT. AGREEABLE TO TAKING TYLENOL EVEN THOUGH STATED PAIN MINIMAL TO NONE. HEATING PAD TO RT SHOULDER, TEMP ON HEATING PAD DECREASED PER PT. REQUEST. REPOSITIONED SEVERAL TIMES DURING THE NIGHT WITH ATTENDS CHANGE, ALSO PO FLUIDS OFFERED AND PROVIDED. PT. RESTED QUIETLY IN BED, ASLEEP ON/OFF DURING THE NIGHT. NO APPARENT DISTRESS NOTED. ON 2L OF O2 VIA NC, CHEST TUBE IN PLACE TO WALL SUCTION, DSG C/D/I. NO COMPLAINTS OF DISCOMFORT AND NO CONCERNS VERBALIZED THIS SHIFT. DENIES ANY NEEDS AT THIS TIME, VSS. CALL LIGHT WITHIN REACH AND SIDE RAILS UPX2. WILL CONT TO MONITOR.
--- NOTE | 2020-05-12 19:14 | NUR ---
SHIFT SUMMARY PT AOX4. PT C/O PAIN; MEDICATED PER EMAR. PT DENIES ANY SOB OR CP. MEPELEX INTACT AND CHEST TUBE DRAINING. BED IS IN THE LOWEST POSITION AND CALL LIGHT WITHIN REACH.
--- NOTE | 2020-05-12 19:21 | NUR ---
SHIFT SUMMARY PT CAME IN FOR DEHYDRATION AND FAILURE TO THRIVE. PT STATED THAT PT HAS NOT BEEN EATING FOR DAYS AND VERY WEAK FOR WEEKS NOW. PT IS EYES CLOSED AND NONVERBAL WHEN ASKED DASHAWN QUESTIONS. PT IS VERY WEAK AND FRAGILE. PT HAS MULTIPLE BRUISING IN ARMS, BUTTOMS, AND RIGHT LOWER EXTREMITIES. MEPELEX WAS PLACED ON PT BUTTOM- SEE PIC. PT IS INCONTINENT AND STATED THAT HE IS THE PRIMARY CAREGIVER OF THIS PT; HE STATED THAT HE TOOK HIS TO THE DR AND CARRIED HER TO THE CAR; WHICH PROBABLY CAUSED HER TO HAVE SOME BRUISING IN HER BUTTOM. IS STILL IN DENIAL STAGE THAT THIS PT SHOULD BE IN COMFORT CARE. PT CAME IN FULL CODE STATUS PER ED. BUT DECIDED TO CHANGE TO DNR. PALLIATIVE CARE CONSULT WAS ORDERED FOR THIS PT. PT IS ON 2L OF O2 SUPLEMENT. SATS ABOVE 90S. PT HAS HX OF DM AND GOUT. BED IS IN THE LOWEST POSITION AND CALL LIGHT WITHIN REACH.
--- NOTE | 2020-05-12 22:34 | NUR ---
PT. REPORTS PAIN TO RT SHOULDER MUCH IMPROVED 3/10 AT THIS TIME. HEATING PAD IN PLACE. DENIES NEEDS. CALL LIGHT WITHIN REACH AND SIDE RAILS UPX2. WILL CONT TO MONITOR.
--- NOTE | 2020-05-13 04:13 | NUR ---
SHIFT SUMMARY- PT. C/O NOT BEING ABLE TO SLEEP DURING THE NIGHT. MEDICATED PT. WITH SLEEP AIDS LAST NIGHT. ALSO C/O OF RT SHOULDER AND R FOOT PAIN. PERCOCET AND TYLENOL GIVEN PER EMAR WITH MINIMAL EFFECT. THERE WAS SOME CONCERN LAST NIGHT WITH CHEST TUBE HAVING MINIMAL BUBBLING IN THE WATER SEAL CHAMBER AND UPON REASSESSING PT. NOTED CREPITUS TO LT SIDE MORE EXTENSIVE. PT. DENIED ANY PAIN OR DISCOMFORT AND NO C/O SOB. WATER IN CHAMBER APPEARED TO HAVE EVAPORATED, PCU BRAID FOLDER ASSISTED, ADDITIONAL WATER ADDED AND VALVE WAS ADJUSTED. WATER SEAL CHAMBER STARTED TO CONTINOUSLY BUBBLE PREVIOUSLY. HOSPITALIST DR. CORTEZ NOTIFIED, RECEIVED ORDER FOR STAT CXR. PER BRAID FOLDER STACEY RECEIVED CALL FROM DR CORTEZ REGARDING CXR RESULTS, STATED CHEST TUBE REMAINS IN PLACE WITH SOME CREPITUS THAT HAS BEEN PRESENT FOR A FEW DAYS. INSTRUCTED TO CALL PHYSICIAN IF PT. C/O INCREASED PAIN TO AREA OR SOB. PT. CONTS TO HAVE NO COMPLAINTS OF PAIN TO LT SIDE WHERE CT PLACED AND NO SOB. PT. HAS BEEN REPOSITIONED FREQUENTLY T/O THE NIGHT WITH ATTENDS CHANGE. HEATING PAD HAS ALSO BEEN IN PLACE TO RT SHOULDER. VSS. CALL LIGHT WITHIN REACH AND SIDE RAILS UPX2. WILL CONT TO MONITOR.
--- NOTE | 2020-05-13 05:10 | NUR ---
ENTERED TO GIVE PT. SCHEDULED TYLENOL PER EMAR. PT. VERY IRRITABLE AND REQUESTING PERCOCET INSTEAD. INFORMED PT. HAD BEEN MEDICATED WITH PERCOCET @0217 AND NEXT DOSE TOO SOON TO GIVE BUT WOULD RETURN AT THE APPROPRIATE TIME TO MEDICATE HIM. PT. STATED DID NOT WANT THE TYLENOL BECAUSE "IT DOES NOT WORK." PT. WAS ANGRY AND PROCEEDED TO TELL THIS NURSE THAT HE WAS "GOING TO STRAIGHTEN THIS OUT WITH THE DOCTOR AND WE ALL HAVE TO DO WHAT HE WANTS US TO DO NOT WHAT WE WANT TO DO WITH HIM." EXPLAINED TO PT. THAT TYLENOL WAS OFFERED THIS AM BECAUSE IT WAS ORDERED SCHEDULED MED AND ALSO EXPLAINED THAT HE HAS RIGHT TO REFUSE MEDICATION. DENIES ANY OTHER NEEDS AT THIS TIME. CALL LIGHT WITHIN REACH. WILL CONT TO MONITOR.
--- NOTE | 2020-05-13 06:32 | NUR ---
OFFERED PT. PAIN MEDICATION DUE TO PT. COMPLAINT OF PAIN EARLY IN THE AM. TOO EARLY TO ADMINISTER DURING THAT TIME. PT. REFUSED STATED DID NOT NEED THE PERCOCET NOW. PT. REPORTED PAIN 3/10 TO RT SHOULDER AND RT FOOT. INSTRUCTED TO NOTIFY NURSE IF DECIDED WANTED PAIN MED. VERBALIZED UNDERSTANDING.
--- NOTE | 2020-05-13 18:51 | NUR ---
DR BARKLEY CAME TO BEDSIDE AND CHANGED PT'S CHEST TUBE DRESSING, HE STATES THAT BUBBLING DOES INDICATE AIR LEAKING, HE IS AWARE, THIS IS NOT NEW, CONTINUE TO MONITOR
--- NOTE | 2020-05-13 19:43 | NUR ---
SHIFT SUMMARY MARLENE WAS VERY UPSET UPON MEETING HIM THIS MORNING. HE WAS VERY ANGRY THAT HE WAS AWOKEN WHEN HE WAS ASLEEP DURING CHEMIST STEROIDS TO BE GIVEN TYLENOL. VERY ANGRY SEVERAL TIMES THROUGHOUT DAY ABOUT THIS. WHEN UNHAPPY WITH CARE, HE STATES HE IS GETTING PAYBACK FOR COMPLAINING ABOUT A NURSE. DR ATKINS DC'D TYLENOL. PRN BACLOFEN AND PO ATIVAN ORDERED FOR MUSCLE SPASMS AND ANXIETY. Q2 TURN, INCONTINENT URINE. RED SACRUM, MEPILEX IN PLACE. R SHOULDER PAIN, GOT PERCOCET. CREPITUS THROUGHOUT WHOLE TORSO AND LEAK IN CHEST TUBE, DR BARKLEY AWARE. HE CAME TO SEE PT AND CHANGED DRESSING EARLIER THIS EVENING. ON 2L OXYGEN. CALL LIGHT IN REACH, REPORT GIVEN TO NIGHT NURSE
--- NOTE | 2020-05-13 20:15 | NUR ---
05/13/201999 PT CRYING ON PHONE TALKING WITH "FATHER". STATES HE IS "DYING". REQUESTED PAIN AND "SPASM" MED. LEFT CHEST TUBE INTACT TO PLEUROVAC SUCTION. DECLINED TO TURN AT THIS TIME. SEE MAR FOR MEDS GIVEN INCLUDING FOR ANXIETY.
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
[2020-05-14 11:31] LABS: Anion Gap 5 mmol/L (6-16); Blood Urea Nitrogen 20 mg/dL (8-24); Bun/Creatinine Ratio 25.7 (12.0-20.0); CO2, Blood 28 mmol/L (21-32); Calcium, Blood 8.5 mg/dL (8.5-10.1); Chloride, Blood 104 mmol/L (98-108); Creatinine, Blood 0.78 mg/dL (0.60-1.20); Glomerular Filtration Rate >60 (60-); Glucose, Blood 121 mg/dL (70-99); Potassium, Blood 4.5 mmol/L (3.5-5.5); Sodium, Blood 137 mmol/L (136-145)
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
--- NOTE | 2020-05-15 07:58 | NUR ---
05/15/20 0515 AWAKE AND REQUESTING PAIN AND SPASM PILLS FOR RT SHOULDER DISCOMFORT. SEE MAR. SLEPT WELL ON AND OFF WITH OCC. INCONTINENT EPISODES AND NEEDING CHANGING. GOOD SRINATH=CARE WITH ALL CHANGES OF ATTENDS. VITALS STABLE. NO HALLUCINTAIONS THIS SHIFT.
--- NOTE | 2020-05-15 18:11 | NUR ---
SHIFT SUMMARY NO ACUTE CHANGES THIS SHIFT. MEDICATED FOR PAIN PER EMAR X2 THIS SHIFT. PT HAS A GOOD APPETITE. CHEST TUBE IN PLACE TO LEFT SIDE. THIS RN HAS ENCOURAGED PT TO TURN ON SIDE AND PLACE PILLOWS BUT PT DECLINES. PT EDUCATED ON IMPORTANCE OF TURNING. FOAM IN PLACE ON COCCYX. WAITING FOR POSSIBLE TRANSFER TO ANOTHER HOSPITAL FOR SURGERY. CALL LIGHT IN REACH. WILL MONITOR.
--- NOTE | 2020-05-16 04:51 | NUR ---
SHIFT SUMMARY PT HAD A DIFFICULT NIGHT. SLEPT FOR BRIEF PERIODS OF TIME THROUGHOUT THE NIGHT. COMPLAINED OF MUSCLE SPASMS AND PAIN IN BLE'S. MEDICATED PER EMAR. PT UPSET BECAUSE HE STATES THAT HE USES MARIJUANA AT HOME FOR SYMPTOM RELIEF OF LEG SPASMS/PAIN WITH GOOD EFFECT AND THE MEDICATIONS HERE IN THE HOSPITAL HE FEELS LIKE ARE NOT EFFECTIVE. CHEST TUBE REMAINS IN PLACE. CONTINUOUS SUCTIONING. LEAKAGE NOTED. MD AWARE. NO SOB OR RESPIRATORY DISTRESS NOTED. CREPITUS THROUGHOUT LEFT CHEST/BACK/ABD. VITAL SIGNS STABLE. PT RESTING IN BED AT THIS TIME. WILL CONTINUE TO MONITOR AND REPORT TO DAY RN.
--- NOTE | 2020-05-16 18:43 | NUR ---
SHIFT SUMMARY PT'S CHEST TUBE IS WATER SEALED AT THIS TIME. CHEST XRAY TO BE DONE IN THE AM PER DR. BARKLEY ORDERS. MEDICATED FOR PAIN AND MUSCLE SPASMS PER EMAR T/O THE SHIFT. PT HAS A GOOD APPETITE. VOIDING WELL. STILL ENCOURAGING PT TO TURN TO PREVENT WOUNDS. NO ACUTE CHANGES. CALL LIGHT IN REACH. WILL CONTINUE TO MONITOR.
--- NOTE | 2020-05-17 04:47 | NUR ---
SHIFT SUMMARY PT HAD A MUCH BETTER NIGHT TONIGHT. SLEPT THROUGH A GOOD AMOUNT OF THE NIGHT. PT WOKE ONCE WITH LEGS SCRUNCHED UP IN THE BED AND WAS COMPLAINING OF PAIN AND MUSCLE SPASMS. MEDICATED X 1 W/ 1 TAB 7.5 PERCOCET AND 10 MG BACLOFEN. OTHERWISE THE REST OF THE NIGHT PT REPORTED PAIN BEING TOLERABLE AT A 3/10. CHEST TUBE TO LEFT CHEST WALL NOTED. CHEST TUBE WATER SEALED BY MD YESTERDAY. CREPITUS APPEARS TO BE SLIGHTLY IMPROVED FROM NIGHT BEFORE BUT REMAINS THROUGHOUT MOST OF LEFT TORSO/BACK/ABD. VITAL SIGNS STABLE. WILL CONTINUE TO MONITOR.
--- NOTE | 2020-05-17 06:07 | NUR ---
PT DOWN TO IMAGING FOR CHEST XRAY.
--- NOTE | 2020-05-17 18:00 | NUR ---
SHIFT SUMMARY NO ACUTE CHANGES THIS SHIFT, CALM AND COOPERATIVE c CARE, A&Ox4. PT TREATED FOR PAIN X1 THIS SHIFT AND ALSO FOR MUSCLE SPASMS PER EMAR. PT REPORTS NO PAIN SINCE ADMINISTRATION THIS AM AND IS COMFORTABLE. PT IS ALSO USING KPAD FOR DISCOMFORT OF THE BILATERAL SHOULDERS. MEPILEX PLACED ON PT COCCYX AND BACK (BONY PROMINENCE) AFTER BEDBATH TO PREVENT ANY SKIN BREAKDOWN SINCE PT IS BEDREST. CHEST TUBE IN PLACE, LOCATED LEFT ANTERIOR CHEST. STERILE WATER LEVEL IS @ 20CM. TIDALING OCCURING AND INTERMITTENT BUBBLING. DRAINAGE IS RED IN COLOR. PT DENIES ANY SOB OR RESPIRATORY DISTRESS. REMAINS ON 1 L/MIN NC. PT IS CURRENLTY RESTING IN BED c CALL LIGHT WITHIN REACH.
--- NOTE | 2020-05-18 04:28 | NUR ---
SHIFT SUMMARY ADMITTED FOR LEFT PNEUMOTHORAX. DNR CODE. PT HAS A CHEST TUBE FROM THE LEFT ANTERIOR CHEST WALL. A ONE WAY VALVE WAS PLACED FOR THIS BY DR DOSS ON PREVIOUS SHIFT. PT WAS HIGHLY ANXIOUS & AGITATED THROUGHOUT SHIFT. HE STATED HE FEARS HE WILL IF HE RETURNS HOME. HE STATES HE CANNOT CARE FOR HIMSELF AND HE DOES NOT HAVE ENOUGH CAREGIVER HOURS IN PLACE. I DID ULTIMATELY MEDICATE HIM FOR ANXIETY.
--- NOTE | 2020-05-18 10:13 | NUR ---
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 PT THOUGHT THAT HE WAS GOING TO BE SENT HOME W/O EXTRA CARE AND BEGAN TO STRESS. PT STATES HE WANTS PLACEMENT BECAUSE HE FEARS IF HE GOES HOME HE WILL . DR MARIEE DISCUSSED WITH PT THAT WE ARE NOT SENDING HIM HOME SOON NOR WITHOUT EXTRA SUPPORT. I ALSO DISCUSSED WITH KILEY HAMMER (CARE MANAGEMENT) PT CONCERNS AND SHE STATED THAT SHE ADDED PT TO HER LIST WEDNESDAY AND WILL CALL AND DISCUSS PLAN WITH DENTAL HYGIENE INSTRUCTOR AND ADVOCATE FOR PT PLACEMENT.
--- NOTE | 2020-05-18 14:49 | NUR ---
PT STRESSED REGARDING STATEMENTS MADE BY HIS PARENTS. ACCORDING TO THE PT HIS PARENTS ARE AGAINST HIM GOING TO A FACILITY DUE TO COVID AND QUESTION WHY HE CANNOT JUST GO HOME. PT STATES HE IS SCARED TO GO HOME WITH THE LITTLE AMOUNT OF HELP HE RECIEVES A DAY. DISCUSSED WITH KILEY HAMMER AND SHE STATED THAT THE PARENTS BEING POA MEANS THEY MAKE THE DECISIONS FOR THE PT ONLY IF HE IS UNABLE TO. I ENSURED THE PT OF THIS BUT HE STILL FEELS UNEASY. I ALSO STATED THAT ON WEDNESDAY CASE MANAGEMENT WILL BE ABLE TO WORK WITH HIM AND [employer] TO COME UP WITH A PLAN FOR DISCHARGE. PT STATES HE DOES NOT EVEN WANT TO EAT BECAUSE THAT IS THE ONLY POWER HE FEELS HE HAS. CHARGE NURSE INFORMED OF PT STATEMENTS WELL.
--- NOTE | 2020-05-18 19:02 | NUR ---
SHIFT SUMMARY NO ACUTE CHANGES T/O SHIFT, A&OX4, ANXIOUS T/O MOST OF DAY R/T DISCHARGE AND PARENTS' STATEMENTS TOWARDS PT. SEE PREVIOUS NOTES. CASE MANAGEMENT IS INVOLVED AND WILL TALK TO HEADHUNTER ON WEDNESDAY TO COME UP WITH A PLAN. KODI AND PHYSICAL THERAPY AGREE THAT PT NEEDS MORE ASSISTANCE, SUCH PLACEMENT/SNF WHEN DISCHARGED. PT ALSO AGREES AND FEELS UNSAFE GOING HOME. PT WAS REASSURED T/O DAY THAT STAFF ARE WORKING WITH HIM TO ENSURE HIS SAFETY AND PROPER PLAN FOR DISCHARGE OCCURS. CHEST TUBE STILL LOCATED IN LEFT ANTERIOR CHEST. INTERMITENT BUBBLING OCCURING WELL TIDALING. TREATED FOR PAIN AND MUSCLE SPASMS X2 TODAY. PT IS CURRENLTY RESTING IN BED WITH CALL LIGHT WITHIN REACH.
--- NOTE | 2020-05-19 04:21 | NUR ---
SHIFT SUMMARY ADMITTED FOR LEFT PNEUMOTHORAX. DNR CODE. PLAN IS FOR PLACEMENT. WHEELCHAIR BOUND AT BASELINE. CHEST TUBE IN PLACE LEFT ANTERIOR. CREPITUS IN LEFT LUNG. PERCOCET IN EMAR. BACLOFEN FOR MUSCLE SPASMS. PT IS A&O X4. PREVENTATIVE MEPILEX ON COCCYX. DR BARKLEY IS CONSULT, HE HAS PLACED A ONE WAY VALVE FOR CHEST TUBE. CASE MANAGEMENT WILL DELVE INTO THIS CASE MORE ON WEDNESDAY, TO ASSIST WITH CARE PLAN. PT IS MUCH LESS ANXIOUS THIS SHIFT THAN ON MY PREVIOUS FRONT OFFICE HELP WITH HIM.
--- NOTE | 2020-05-19 08:41 | NUR ---
PT VERY ANXIOUS WITH MORNING MEDS. HE STATES HE IS WORRIED HIS PARENT WILL TAKE HIM HOME TO TAKE CARE OF HIM. HE DOES NOT FEEL SAFE BEING UNDER THE CARE OF HIS 80+ YEAR OLD PARENTS. PT WANTS TO BE PLACED IN A SNF. SOCIAL WORK INVOLVED. PT STATED HIS PARENTS ARE THREATENING TO SEND THE SHERRIF OUT TO TALK WITH THE DOCTOR.
--- NOTE | 2020-05-20 04:18 | NUR ---
SHIFT SUMMARY A/O, ABLE TO MAKE NEEDS KNOWN. COOPERATIVE WITH CARE. CALLS AND ANSWES QUESTIONS APPRORIATELY. C/O PAIN/DISCOMFORT; MEDICATED PER EMAR. REPOSITIONED TOLERATED. CHEST TUBE TO WATER SEAL. CONTINUES TO HAVE DR. HENNY BUI. APPEARED TO REST WELL OVERNIGHT. NO ACUTE CHANGES NOTED. VSS/AFEBRILE. BED REMAINS IN LOWEST POSITION. CALL LIGHT AND BELONGINGS WITHIN REACH. CONTINUE WITH CURRENT PLAN OF CARE. CASE MGMT ON BOARD FOR SAFE DISCHARGE PLANNING. REPORT TO ONCOMING RN.
--- NOTE | 2020-05-20 12:17 | NUR ---
HE REFUSED VS THIS MORNING BUT ATE HIS BREAKFAST AND TOOK HIS AM MEDICATIONS. HE STARTED THE SHIFT IN SEVERE PAIN. WAS CONTACTED AND GAVE A 1 TIME ORDER FOR IV FENTANYL. IT WAS GIVEN AND HIS PAIN DECREASED FROM A 10 TO A 2. HE HAS BEEN ANGRY AND UNCONSOLEABLE MOST OF THE DAY. THE DOCTOR AND PAIN MANAGEMENT SPECIALIST HAVE ROUNDED ON HIM, I SPENT A LOT OF TIME LISTENING TO HIM, THE LARGE SHEETFED PRESS OPERATOR SPENT TIME WITH HIM, ANOTHER PAIN MANAGEMENT SPECIALIST AND THE CHARGE NURSE. HE REMAINS ADAMENT ABOUT PULLING OUT HIS CT AND TAKING A TAXI HOME TO HIS APARTMENT. HE WANTS TO ONLY TALK TO A FRIEND FROM HIS [employer] BUT HE DOESN'T HAVE THE NUMBER. HE AND THE CHARGE NURSE TRIED TO FIND HIS NAME LISTED AND # BUT TO NO AVAIL. MARLENE CALLED [facility] BUT THERE IS NO ANSWERING MACHINE. THE CHARGE NURSE IS NOW CALLING HIS HOME CARE AGENCY TO SEE IF THERE IS ANYTHING THEY CAN DO. SAYS SHE WILL COME BACK IF HE CONTINUES THIS COURSE.
--- NOTE | 2020-05-20 13:43 | NUR ---
WAS HERE. HE REMOVED THE CT. SUTURES IN PLACE, XERAFORM, GAUZE AND OCCLUSIVE TAPE. HE TOLERATED IT WELL. HE IS BEHAVING CALM AND TALKATIVE NOW.
--- NOTE | 2020-05-20 17:16 | NUR ---
Spiritual care note: I was asked to speak with Bill as he was despondent after an argument with his parents.I allowed him space to vent for quite awhile. He spoke in circles, repeating the fact that he wants to go home/spoke pot. He tells me that he has been recently converted to [employer], and he only wants to speak with a freind in this community. He is very frustrated that he doesn't have this person's contact information and is threatening to leave AMA to go home and get phone number. He also wants to revoke durable POA--removing his parents from all decision making on his behalf. At times he was very child-like and unreasonable. He states that smoking pot "is the only thing that helps" and repeats his desire to go home. He also states that he wants "to go into the system and disappear." He claims to want placement in an assited living/foster care/usp. I can't help but wonder if these options will allow for his marijuana use. Regardless, he repeatedly stated that his friend from the [facility] was the only person he wanted to talk to. He declined prayer and rejected all suggestions. I will remain available.
--- NOTE | 2020-05-20 17:40 | NUR ---
HE HAS BEEN HAPPY TODAY SINCE HIS CT WAS REMOVED EXCEPT FOR A PHONE CALL HE RECEIVED FROM HIS DAD. DRESSING INTACT OVER CT SITE. HE IS SITTING UP IN THE CHAIR, EATING DINNER. THERAPY DID A PIVOT TRANSFER WITH HIM. HE MOVES WELL. SEE EARLIER NOTES ABOUT HIS UNCONSOLEABLE MORNING.
--- NOTE | 2020-05-20 23:58 | NUR ---
1955 PT LYING IN BED, REPORTS ABD PAIN AND NAUSEA, REPORTS CONSTIPATION. PT GIVEN PERCOCET, ZOFRAN, AND DULCOLAX SUPPOSITORY. WILL EVAL FOR EFFECT. NO OTHER APPARENT SIGNS OF DISTRESS. CALL LIGHT IS IN REACH.
--- NOTE | 2020-05-21 00:33 | NUR ---
PT LYING IN BED, EYES CLOSED, APPEARS TO BE RESTING. BREATHING IS EVEN, UNLABORED. NO APPARENT SIGNS OF DISTRESS. CALL LIGHT IS IN REACH.
--- NOTE | 2020-05-21 03:52 | NUR ---
0200 PT LYING IN BED, EYES CLOSED, APPEARS TO BE RESTING. BREATHING IS EVEN, UNLABORED. NO APPARENT SIGNS OF DISTRESS. CALL LIGHT IS IN REACH.
--- NOTE | 2020-05-21 03:52 | NUR ---
PT LYING IN BED, EYES CLOSED, APPEARS TO BE RESTING. WAKES EASILY TO VERBAL STIMULI. NO APPARENT SIGNS OF DISTRESS. CALL LIGHT IS IN REACH.
--- NOTE | 2020-05-21 03:53 | NUR ---
PT IS AAAO X 4. PT REPORTED ABD PAIN AND NAUSEA, PT GOT PAIN AND NAUSEA MEDS. PT REPORTS CONSTIPATION, PT GOT MOM FROM DAYSHIFT AND A SUPPOSITORY FROM NOCS. DRESSING ON L SIDE IS C/D/I, CHEST TUBE REMOVED YESTERDAY ON DAYSHIFT.ON RA. TELE NSR.
--- NOTE | 2020-05-21 06:12 | NUR ---
PT LYING IN BED, AWAKE, XRAY IN ROOM. NO APPARENT SIGNS OF DISTRESS. CALL LIGHT IS IN REACH. NO OTHER CHANGES THIS SHIFT.
--- NOTE | 2020-05-21 13:21 | NUR ---
HE JUST RECEIVED OXYCODONE AND BACLOFEN FOR THE 2ND TIME TODAY FOR SPASMS AND PAIN FROM HIS MULTIPLE SCLEROSIS. HIS OLD CT SITE DRESSING IS INTACT. NO RESPIRATORY DISTRESS. ON RA. GOOD AIR EXCHANGE. IN MOSTLY GOOD SPIRITS TODAY. HE WAS FEELING THAT LIFE WAS FUTILE EARLIER THEN SPOKE WITH HIS CAREGIVER AND ANOTHER FRIEND AND BRIGHTENED UP. HE CONTINUES TO SAY THAT HE DOESN'T WANT TO SPEAK WITH HIS PARENTS.
--- NOTE | 2020-05-21 14:21 | NUR ---
Pt resting in bed upon arrival. Pt reporting working well with therapy today. Pt reports being in agreement with placement into assisted living. Pt reports concerns regarding his parents having the ability to make decisions regarding his healthcare if he can't make decisions for himself. Educated on advanced directive and each section to complete. Educated on life sustaining treatments. Pt reports having a healthcare personal financial representative in mind and will confirm with this person regarding his willingness to be Pt's healthcare personal financial representative. Once Pt confirms with person then Pt will complete AD. Pt reports no other concerns at this time. Palliative Care will remain available.
--- NOTE | 2020-05-21 16:53 | NUR ---
HE JUST HAD A NICE LONG VISIT FROM A FRIEND. NO OTHER CHANGES. NO RESPIRATORY DISTRESS. COLLATING MACHINE OPERATOR WORKING ON POSSIBLE PLACEMENT.
--- NOTE | 2020-05-22 06:07 | NUR ---
SHIFT SUMMARY NO ACUTE CHANGES TO REPORT THIS SHIFT. PT HAS RESTED MOST OF THE NIGHT, MEDICATED FOR PAIN PRN PER ORDERS. PT HAD MEDIUM SIZED INCONTINENT BM THIS SHIFT AFTER RECEIVING BOWEL CARE THE PREVIOUS SHIFT. VITALS ARE STABLE. PT PLESANT, COOPERATIVE, AND APPRECIATIVE OF CARE. BED IN LOWEST POSITION, CALL LIGHT WITHIN REACH.
--- NOTE | 2020-05-22 07:19 | NUR ---
ASSUMED CARE OF PT- EDSIDE REPORT COMPLETED WITH NIGHT RN. PT IN BED CALL LIGHT IN REACH. PAIN MEDS GIVEN PRIOR TO SHIFT CHANGE, PT STATED THE PAIN IS SUBSIDING NOW; PT STATED THE SPASAMS ARE STARTING A BIT PRN TID BACLOFEN AVAILABLE, PT WOULD LIKE TO TAKE IT CLOSE TO WHEN THERAPY WILL BE WORKING WITH HIM TO IMPROVE HIS ABILITY TO DO HIS THERAPIES. PT IN BED, CALL LIGHT IN REACH, BED IN LOW POSITION.
--- NOTE | 2020-05-22 17:48 | NUR ---
SHIFT SUMMARY- PT ALERT AND ORIENTED 1PA WITH WALKER AND GAIT BELT FOR STAND PIVOT TRANSFERS. PLAN IS FOR PT TO DC TO ASSISTED LIVING, AWAITING PLACEMENT. PT HAS BEEN PLEASENT T/O THE DAY HOWEVER HE IS VERY VOCAL ABOUT HIS TENUIOUS RELATIONSHIP WITH HIS PARENTS. THE PT CAN SPEAK FOR LONG PERIODS ON THIS TOPIC AND IT SEEMS TO PUT HIM IN MORE DISTRESS TALKING ABOUT IT. STAFF HAVE REDIRECTED THE CONVERSATION AND STOPPED IT ALL TOGETHER, SEVERAL TIMES TODAY. PT IS PLEASENT AND COOPERATIVE WITH ALL CARE. 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 PT IN BED CALL LIGHT IN REACH, FAMILY AT THE BEDSIDE. NO S&S OF DISTRESS NOTED AT THIS TIME WILL CTM.
--- NOTE | 2020-05-22 19:00 | NUR ---
ASSUMED CARE RECEIVED REPORT FROM DONALD RUIZ. PT COMFORTABLE, IN NO ACUTE DISTRESS. DENIES NEEDS AT THIS TIME. CALL LIGHT, POSSESSIONS IN REACH. CONTINUE TO MONITOR.
--- NOTE | 2020-05-23 07:20 | NUR ---
BUTTON STATION WORKER SUMMARY PT APPEARS COMFORTABLE, IN NO ACUTE DISTRESS. VS REVIEWED,WNL. PT SLEPT T/O NIGHT. SCHEDULED COLACE HELD OVERNIGHT FOR LOOSE STOOLS, PT HAD LOOSE BM X1. NO ACUTE CHANGES IN CONDITION NOTED OVERNIGHT. PAIN AND MUSCLE SPASMS MANAGED WITH MEDS PER EMAR. PT DENIES NEEDS AT THIS TIME. CALL LIGHT, POSSESSIONS IN REACH, BED IN LOW POSITION. REPORT GIVEN TO DONALD RUIZ.
--- NOTE | 2020-05-23 18:32 | NUR ---
SHIFT SUMMARY- PT HAS HAD NO ACUTE CHANGE TODAY. HE HAS BEEN UP OUT OF BED TO TH CHAIR A COUPLE OF TIMES, STOOLS CONTINUE TO BE INCONTINENT. PT RECIEVED A FULL BEDBATH TODAY. PT IN BED CALL LIGHT IN REACH NO S&S OF DISTRESS NOTED AT THIS TIME WILL CTM. PT CURRENTLY AWAITING PLACEMENT.
--- NOTE | 2020-05-23 19:05 | NUR ---
ASSUMED CARE RECEIVED REPORT FROM DONALD RUIZ. PT RESTING COMFORTABLY, PLEASANT. NO ACUTE DISTRESS NOTED. RESPS E/U. DENIES NEEDS AT THIS TIME. CALL LIGHT, POSSESSIONS IN REACH. CONTINUE TO MONITOR.
--- NOTE | 2020-05-23 20:44 | NUR ---
PT BEHAVIOR THIS RN NOTIFIED BY BASIL MCQUEEN, OF PT REQUEST FOR PAIN MEDS X2. THIS RN IN ROOM, ASSESSING PT'S PAIN. PT YELLING AT THIS RN, VISIBLY UPSET, STATING "I NEED MY PAIN MEDS AND SPASM MEDS NOW! I HAVE MS. NO ONE COMES AND HELPS ME, AND I'M NEGLECTED AND LEFT LAYING IN MY OWN PISS!" ATTEMPTING TO DE-ESCALATE PT BEHAVIOR, THIS RN REASSURED PT, STATING THAT STAFF IS HERE TO HELP, BUT REMINDED PT THAT STAFF IS OFTEN ASSISTING OTHER PTS AND MAY NOT BE ABLE TO COME INTO PT'S ROOM RIGHT AWAY. PT INDIFFERENT, STATING "I'M SELFISH AND I DON'T CARE." THIS RN REMINDED PT OF APPROPRIATE CALL LIGHT USE, AND EMPHASIZED NECESSITY OF COMMUNICATING NEEDS TO STAFF SO STAFF CAN HELP PT TO GET CARE HE NEEDS IN A TIMELY MANNER. PT MINIMALLY RECEPTIVE TO EDUCATION. ASISSTED BASIL MCQUEEN TO CHANGE PT ATTENDS. HEAT PACK PLACED TO RT SHOULDER. PT DENIES FURTHER NEEDS AT THIS TIME. CONTINUE TO MONITOR.
--- NOTE | 2020-05-24 02:48 | NUR ---
SPOKE TO DR. ONEILL REGARDING PT'S CONTINUED C/O PAIN. ORDERS RECEIVED. CONTINUE TO MONITOR.
--- NOTE | 2020-05-24 06:10 | NUR ---
05/24/[address] Benitez notified of patient c/o severe pain due to MS. Pt states his muscles are frozen. Pt usually uses marijuana at home, prefers not to have opiates. We will try toradol 15-30mg Q6 hours IV.
--- NOTE | 2020-05-24 06:39 | NUR ---
SENIOR POWER PLANT OPERATOR SUMMARY PT RESTING QUIETLY, IN NO ACUTE DISTRESS. APPEARS TO BE MORE COMFORTABLE S/P TORADOL AND BACLOFEN ADMINISTRATION. NO OTHER ACUTE CHANGES IN CONDITION. VS REVIEWED,WNL. PT DENIES NEEDS AT THIS TIME. CALL LIGHT, POSSESSIONS IN REACH, WILL REPORT OFF TO DAY RN.
--- NOTE | 2020-05-24 14:58 | NUR ---
SHIFT SUMMARY PT RESTING QUIETLY AT START OF SHIFT, BUT SOON WOKE FOR CARE AND STARTED ASKING FOR PAIN MEDICATION. PAIN MEDICATION OBTAINED AND WAS ATTEMPTING TO PULL UP PT INFO ON COMPUTER WHEN PT STARTED USING PROFANITY TO DESCRIBE PREVIOUS RN AND THE CARE HE HAD RECEIVED. PT ALSO YELLING THAT NO ONE HAD CALLED THE DR ALL NIGHT LIKE HE ORDERED. PER SHIFT REPORT, PREVIOUS RN HAD CALLED THE HOSPITALIST AND SOMETIME LATER THE 911 DISPATCHER CALLED AGAIN WELL. PT UNWILLING TO LISTEN OR COMMUNICATE W/O THREATENING OR USING CONSTANT PROFANITY. [facility] RN NOTIFIED. PT REMINDED AGAIN ON HOW TO COMMUNICATE WITH STAFF TO TRY AND DISCUSS NEEDS. [facility] RN CALLED DR ATKINS TO OBTAIN NEW MEDICATION FOR MORE EFFECTIVE PAIN MANAGEMENT OF MS. DR ATKINS IN TO SEE PT AND DISCUSS PLAN OF CARE. MEDICATIONS OBTAINED AND GIVEN PER EMAR. PT CALMER WHEN DR ATKINS IN AND BECAME MORE APPROPRIATE IN HIS BEHAVIOR. PT CONTINUED TO REFUSE TO ALLOW HIS ATTENDS TO BE CHANGED. PT HAD YELLED PROFANITY FOR QUITE A WHILE AT NOT BEING CHANGED, BUT YET CONTINUALLY REFUSED. PT AGREED TO ATTENDS CHANGES AFTER SEVERAL HOURS. PT HAS ALSO REPORTED NEW MEDICATION MORE EFFECTIVE FOR NERVE PAIN THAN WHAT HE WAS PREVIOUSLY TAKING. PT HAS BEEN RESTING QUIETLY NOW AND SLEEPING OFF AND ON THIS AFTERNOON. CALL LT IN REACH. PT ABLE TO USE.
--- NOTE | 2020-05-24 19:27 | NUR ---
Awake, Laying in bed, watching TV. Voiced having had some increased pain over the past day or so. Neuro check done, voiced no feeling or movement in right leg. Otherwise, has feeling in all other 3 ext. Veneer Gluer equal. Call light in reach.
--- NOTE | 2020-05-25 05:27 | NUR ---
SHIFT SUMMARY AT SHIFT COMMENCT. VOICED ANGER AND FEARS OF BEING IN PAIN AND HAVING LEG SPASMS AND NOT RECEIVING MEDS TO HELP WITH THEM. DURING SHIFT PT RECEIVED SAID MEDS AND VOICED HE WAS RELIEVED THAT HE HAD MEDS THAT WORKED. AFFECT CHEERFUL WHEN TALKING TO NURSE, CALL LIGHT IN REACH. RESTING QUIETLY AT THIS TIME,
--- NOTE | 2020-05-25 18:30 | NUR ---
SHIFT SUMMARY PT AOX4; MEDICATED FOR PAIN TODAY. PT VERY CALM, EMOTIONAL, AND COOPERATIVE DURING THIS SHIFT. DENIES SOB OR CP. BED IS IN THE LOWEST POSITION AND CALL LIGHT WITHIN REACH
--- NOTE | 2020-05-25 19:45 | NUR ---
TALKATIVE. VOICED FEELING COMPASSION FOR ANOTHER PT "SCREAMING IN PAIN " RELAYED APPARENT SITUATION EARLIER IN THE DAY. LABILE AFFECT. HOB ELEVATED. TV ON. CALL LIGHT IN REACH
--- NOTE | 2020-05-26 07:21 | NUR ---
SHIFT SUMMARY HAS BEEN RESTING QUIETLY WITH EFW INTERRUPTIONS THROGH SHIFT, INTERRUPTIONS INCLUDED INCONT OF URINE AND CHANGING AND HAVING BED LINEN TAKEN OFF AND PLACED BACK ON PER HIS COMFORT. CALL LIGHT IN REACH
--- NOTE | 2020-05-26 16:56 | NUR ---
SHIFT SUMMARY PT AOX4, MEDICATED FOR PAIN ON HIS R SHOULDER. PT EMOTIONAL AT TIMES. PT ALSO C/O OF SPASM; MEDICATED FOR SPASM WELL. NO OTHER ACUTE CHANGES ON THIS SHIFT. BED IS IN THE LOWEST POSITION AND CALL LIGHT WITHIN REACH
--- NOTE | 2020-05-26 19:15 | NUR ---
PT CRYING AND WANTING TO GO HOME. PT TOLD BLAST FURNACE BLOWER HE WANTS TO KILL HIMSELF; BUT WHEN I ASSESSED HIM FOR SI IDEATION . HE DENIES AND STATED "I JUST WANT TO GO HOME AND DONT WANT TO KILL MYSELF." PT VERY SAD AND STATED HE IS VERT LONELY
--- NOTE | 2020-05-27 00:02 | NUR ---
DEPRESSED AFFECT AND TEARS CONTINUE AT INTERVALS. ONE ON ONE TIME GIVEN TO DISCUSS UNDERLYING CAUSE(S). VOICED FEELING LONELY AND THAT HIS FAMILY DONT CALL HIM ANYMORE, FRIENDS SEEM TO HAVE FORGOTTEN HIM. NURSE SUGGESTED HE CALL THEM, SOMETIMES PEOPLE DONT CALL PEOPLE IN THE HOSPITAL BECAUSE THEY DONT WANT TO INTERFERE WITH TREATMENT. MEDICATED WITH ANALGESIC, MUSCLE RELAXANT AND SLEEP MED. SEE MAR FOR DETAILS. CALL LIGHT IN REACH. WILL CONTINUE TO PROVIDE MUCH ONE ON ONE SITH PT TIME WILL ALLOW. CURRENTLY RESTING QUIETLY.
--- NOTE | 2020-05-27 03:56 | NUR ---
SHIFT SUMMARY WAS AWAKE FIRST FEW HOURS OF SHIFT WITH TEARY EYES AND VOICED FRUSTRATIONS OF BEING CONFINED TO A ROOM, ALONE AND FEELING THAT HIS FAMILY AND FRIEDS HAD ABANDONED HIM. WAS ENCOURAGED TO CALL THEM. RECEIVED PAIN MEDS, ANTIMUSCLE SPASM MEDS AND SLEEP MEDS. MEDS EFFECTIVE HE HAS BEEN RSTING QUIETLY FOR THE PSAT FEW HOURS WITHOUT NOTED DISTRESS. CALL LIGHT IN REACH
--- NOTE | 2020-05-27 17:23 | NUR ---
PT AOX4 AND HAS BEEN COOPEARATIVE OF CARE. PT SEEMED IN DECENT MOOD FOR THE FIRST HALF OF THE DAY. THIS PERSONAL INSURANCE ADVISOR AND AID HAD BEEN IN AND OUT OF HIS ROOM. PT WAS DOING A LOT OF JOKING AND LAUGHING. LATER IN THE AFTERNOON PT BEGAN TO GET REALLY AGITATED TOWARDS THE AID AND CLAIMING HE DID NOT WANT TO BE HERE AND WAS GOING TO USE THE WALKER AND LEAVE. THIS PERSONAL INSURANCE ADVISOR ENTERED THE ROOM AND SPOKE WITH PT. PT STATED HE WAS BEING HELD AGAINST HIS WILL. THIS PERSONAL INSURANCE ADVISOR STATED TO PT WE ARE NOT ALLOWED TO HOLD PEOPLE IF THEY WANT TO GO HOME. PT STATED HE HAD A CAREGIVER AND ALL THINGS HE NEEDED AT HOME WELL HAVING THE ABILITY TO AFFORD EXTRA COST. PT STATED HE HAD A TRUST FUND TO PAY FOR ANY MEDICAL NEEDS HE MIGHT HAVE. ROLO WAS NOTIFIED AND SHE SPOKE WITH PT AND TOLD HIM SHE WOULD LET HIS HOSPITALIST KNOW OF HIS DECISION. PT HAS CALL LIGHT WITHIN REACH AND HAS BEEN TREATED FOR PAIN AND MUSCLE SPASMS PER EMAR.
--- NOTE | 2020-05-28 04:23 | NUR ---
SHIFT SUMMARY: PT IS ALERT AND ORIENTED. PT IS COOPERATIVE WITH CARE. PT CALLS APPROPRIATELY. PT IS W/C BOUND AT BASELINE. PT HAS A DEPRESSED DEMEANOR AND OFTEN SUGGESTS THAT HE DOESN'T MATTER, OR ISN'T IMPORTANT. PT INCONTINENT, CHANGED AND CLEANED NEEDED. PT REPORTS GENERALIZED PAIN, MEDICATING PER EMAR. PT DENIES NAUSEA, VOMITING, AND SOB. AWAITING PLACEMENT. NO ACUTE CHANGES OR COMPLICATIONS. WILL CONTINUE TO MONITOR.
--- NOTE | 2020-05-28 17:35 | NUR ---
PT AOX4 AND ACTING VERY DEPERESSED TODAY. PT HAS COMPLAINED ABOUT ALL CARE AND NO KIND OF ENCOURAGEMENT SEEMS TO PM HEAD COOK HIS SPIRITS AT THIS TIME. PT DID SIT UP IN A CHAIR FOR AWHILE AND THEN FELT LIKE HE COULD NOT SIT UP AND WAS FALLING FORWARD. PT WAS MOVED INTO HIS BED. NOW PT IS UPSET AT HIMSELF. PT HAS CALL LIGHT WITHIN REACH AND HAS BEEN TREATED FOR PAIN AND MUSCLE SPASM PER EMAR. WILL CONTINUE TO MONITOR.
--- NOTE | 2020-05-28 19:05 | NUR ---
ASSUMED CARE RECEIVED REPORT FROM DONALD EDEN. PT RESTING IN BED QUIETLY, IN NO ACUTE DISTRESS. NO ACUTE NEEDS ASSESSED AT THIS TIME. CALL LIGHT, POSSESSIONS IN REACH, BED IN LOW POSITION. CONTINUE TO MONITOR.
--- NOTE | 2020-05-28 20:09 | NUR ---
THIS RN IN ROOM ADMINISTERING 2100 MEDS. PT VISIBLY DISTRAUGHT, GRIEVING MS DX, STATING HE FELT LIKE HE WAS "FALLING FORWARD". PROVIDED LISTENING EAR. ALSO STATING "I CAN'T DO THIS ANYMORE. I WANT THIS TO END." WHEN ASKED IF PT HAD THOUGHTS OF SELF-HARM, PT STATED HE DID. ALSO STATED HE HAD A PLAN AT THIS TIME. CONTRACTED PT FOR SAFETY, PT STATING "I'M NOT GONNA TELL ANYBODY WHAT I'M DOING BECAUSE THEY'LL INTERFERE WITH IT." ENVIRONMENT CLEARED OF HARMFUL OBJECTS, CHARGE RNS, MILES BENNETT AND MATTIE SHETH INFORMED OF PT'S BEHAVIOR. WILL CONTINUE TO MONITOR PT CLOSELY.
--- NOTE | 2020-05-29 06:55 | NUR ---
AIR TRAFFIC CONTROL SPECIALIST SUMMARY PT LYING IN BED, YELLING AND USING PROFANITY TOWARDS THIS RN AND DAY RN. PT PREVIOUSLY ASLEEP THROUGHOUT THE NIGHT. PT HAS BEEN VERY WITHDRAWN, GRIEVING HIS DX OF MS AND SAYING THAT HE WANTED THINGS TO BE OVER. DENIES THOUGHTS OF SELF-HARM OR A PLAN TO HARM SELF. AGREEABLE TO CARES. PAIN MANAGED WITH MEDS PER EMAR, WITH EFFECTIVE RELIEF. VS REVIEWED, WNL. NO OTHER ACUTE NEEDS ASSESSED AT THIS TIME. CALL LIGHT, POSSESSIONS IN REACH, REPORT GIVEN TO DONALD ROBINS.
--- NOTE | 2020-05-29 15:01 | NUR ---
SUICIDE IDEATION: PATIENT WAS EXPRESSING SUICIDAL IDEATION THIS MORNING. PATIENT DENIED A PLAN AND REPORTED THAT HE WOULD NOT TRY ANYTHING IN THE HOSPITAL. PATIENT EXPRESSED DISFATISFACTION WITH HIS LIFE AND HIS STAY AT THE HOSPITAL. DURING THE AFTERNOON, PATIENT BECAME EUPHORIC HE NOW HAS A PLAN TO KILL HIMSELF. PER THE PATIENT HE IS GOING TO WRAP A SHEET AROUND HIS NECK, ROLL HIMSELF OUT OF BED AND HANG HIMSELF. PATIENT IS SMILING AND LAUGHING WITH THE STAFF. DISCUSSED WITH DR. ORTIZ. NEW ORDER FOR SUICIDE PRECAUTIONS AND TO TOUCH BASE WITH DR. VORA. PER DR. ORTIZ, IT IS ACCEPTABLE TO MOVE THE PATIENT TO THE SPECIAL CARE UNIT AND HAVE HIM ON CAMERA. NOTIFIED HEMODIALYSIS CHARGE NURSE LORI C. PATIENT CURRENTLY WORKING WITH PT.
--- NOTE | 2020-05-29 15:08 | NUR ---
DISCUSSION WITH DR. VORA: DISCUSSED CHANGE IN PATIENT'S STATUS WITH DR. VORA. UPDATED HIM TO THE PLAN FOR INCREASED STAFF PRESENCE AND TO BE ON CAMERA. DR. VORA REPORTED THAT HE IS FAMILIAR WITH THE PATIENT AND WILL ROUND ON HIM TOMORROW.
--- NOTE | 2020-05-29 16:00 | NUR ---
MD AWARE OF HIGH LEVEL AND IS ORDERED MODERATE LEVEL
--- NOTE | 2020-05-29 16:15 | NUR ---
TRANSFERRED TO ROOM 348 DISCUSSED WITH PT SI AND WHAT TO EXPECT WHILE IN SI PRECAUTIONS. DID SAY HE FELT LIKE HE HAD A WEIGHT LIFTED OFF HIS SHOULDERS WHEN HE DECIDED TO KILL HIMSELF AND JUST WANTED TO SAY GOODBY TO HIS FRIENDS THIS AFTERNOON.
--- NOTE | 2020-05-29 19:05 | NUR ---
SHIFT SUMMARY PT BECAME ANGRY ABOUT HIS MEAL TRAY HAVING PLASTIC SILVERWARE. DISCUSSED PRECAUTIONS ONCE AGAIN WITH HIM AND HE SAID T 2-3 TIMES WHILE IN ROOM HE CAN'T FEED HIMSELF AND WAS QUITE UPSET ABOUT POWER DIGGER OPERATOR REMOVING HIS TRAY AFTER SHE BROUGHT IT IN AND HE WAS UPSET ABOUT THE PLASTIC RUIZ. SPECIAL UTENSILS SEEN AND EXPLAINED NEW STAFF WERE UNAWARE OF SPECIAL UTENSILS. OFFERED TO BRING MEAL TRAY BACK IN AND PREPARE ROLL, OPEN ITEMS ETC. PT WANTED HIS TRAY WITH UTENSILS BUT SAID HE DIDN'T EVER WANT ANY HELP FROM THIS STAFF MEMBER AGAIN AND TO GET OUT OF ROOM. CLOSE TO SHIFT CHANGE PT WAS OFFERED PAIN MEDS AND HE SAID HE WASN'T GOING TO BE GIVEN IT SO THERE WAS NO POINT IN IT BEING OFFERED. THIS STAFF MEMBER ATTEMPTED TO SAY SOMETHING TO PT BUT WAS SPOKEN OVER BY PT SO I SAID OK AND BEGAN TO LEAVE THE ROOM. HE YELLED YEAH AND NOW I'M NOT GOING TO GET CARE FROM YOU ANYMORE BECAUSE JUST LIKE THE OTHER ROOM. HE SAID HE WAS GOING TO BE SO MEAN TO EVERYONE COMING IN HIS ROOM THEY WERE GOING TO WANT HIM TO . I RETURNED TO THE ROOM AND SAID I'M MORE THAN HAPPY TO GIVE HIM THE PAIN MEDS IF HE IS HAVING PAIN IF HE WANTS IT. HE SAID YES AND THE BACLOFEN. MEDS GIVEN AND THEN ASSISTED TO BED WITH 2 PERSON STAND PIVOT AND CHANGED. BEGAN TO CRY AFTER SETTLED IN AND KEPT SAYING I HAVE NO HOME TO GO BACK TO AND I HATE THIS PLACE AND I JUST WANT TO . REPORT GIVEN TO ONCOMING SHIFT. CAMERA ON AND PT AWARE OF CAMERA ON IN ROOM.
--- NOTE | 2020-05-29 20:08 | NUR ---
SI DOCUMENTATION PROVIDER AWARE OF SI, ORDER FOR MODERATE RISK LEVEL. CURRENT USE OF DIRECT LINE OF MONITORING BY REMOTE MONITORING STAFF
--- NOTE | 2020-05-29 23:59 | NUR ---
PHYSICIAN CONTACT PT EXTREMELY UPSET THAT WE DID NOT ANSWER CALL LIGHT IMMEDIATELY. YELLING AND CALLING STAFF NAMES. ATTEMPTED TO USE THERAPUTIC COMMUNICATION TO CALM PATIENT DOWN, STATED HE WANTED US TO LEAVE ROOM AND "LEAVE HIM THE HELL ALONE". REMOTE MONITOR STAFF CALLED FEW MINUTES LATER TO NOTIFY US THAT HE WAS ATTEMPTING TO TIE TOP SHEET AROUND BED RAIL WELL NECK. STAFF IN THERE TO REMOVE. SPRINKLING TRUCK DRIVER PROVIDER NOTIFIED, NEW ORDERS FOR HIGH RISK SI PRECAUTIONS. 1:1 SITTER INTITIATED AND CURRENTLY IN ROOM FOR DIRECT OBSERVATION.
--- NOTE | 2020-05-30 03:55 | NUR ---
IT ASSISTANT SUMMARY A/O X3, W/C BOUND AT BASELINE. HIGH SI PRECAUTIONS IN PLACE WITH 1:1 SITTER IN ROOM, PLEASE SEE PREVIOUS NOTE. C/O PAIN X2, MEDICATED PER EMAR. PT MOOD LABILE T/O SHIFT, PLEASANT AND COOPERATIVE AT TIMES. OTHER TIMES PT IS YELLING OR USING PROFANITY TOWARDS STAFF. AWAITING PLACEMENT FOR SAFE D/C. NO ACUTE CHANGES AT THIS TIME. BED IN LOWEST POSITION. WILL CONTINUE TO MONITOR AND REPORT TO ONCOMING RN.
--- NOTE | 2020-05-30 08:27 | NUR ---
PT STATING "I DON'T KNOW" WITH QUESTIONS ASKED. HAD BEEN ASKING FOR PAIN MEDS WELL BACLOFEN. EXPLAINED TOO SOON FOR BACLOFEN BUT IF HE FEELS ITS NOT WORKING LONG ENOUGH I CAN SPEAK WITH MD ABOUT IT.
--- NOTE | 2020-05-30 14:30 | NUR ---
SUTURES REMOVED FROM L CHEST WALL. 3 REMOVED. TOLERATED WITH NO PROBLEM.
--- NOTE | 2020-05-30 18:17 | NUR ---
SHIFT SUMMARY PT HAS NOT YELLED AT STAFF AT ALL TODAY BUT HAS BEEN TALKING WITH 1:1 STAFF IN ROOM THROUGH THE ENTIRE DAY. VISITOR IN WELL SPEAKING ON THE PHONE 2 TIMES WITH RELIGOUS ASSOCIATES. HAS APPEARED HAPPY AND JOVIAL THROUGH THE DAY. DR. VORA IN TO SEE PT AND REPORTED CONTINUES TO BE HIGH RISK AND NEEDING A 1:1.
--- NOTE | 2020-05-31 04:01 | NUR ---
TEAM TRUCK DRIVER SUMMARY A/O X4, APPEARS TO BE IN BETTER SPIRITS THIS SHIFT. PT DENIES SUICIDAL IDEATIONS AT THIS TIME. HIGH SI PRECAUTIONS IN PLACE WITH 1:1 SITTER AND DIRECT OBSERVATION. C/O PAIN AND MUSCLE SPASMS, MEDICATED PER EMAR. VSS, NO ACUTE CHANGES AT THIS TIME. BED IN LOWEST POSITON. WILL CONTINUE TO MONITOR AND REPORT TO ONCOMING RN.
--- NOTE | 2020-05-31 17:27 | NUR ---
PT RESTING IN BED WITH 1:1 SITTER FOR PREV SI STATEMENTS. PT DOES NOT ENDORSE SI AT THIS TIME AND STATES "I DONT KNOW WHY I SAY THOSE THINGS, IM JUST IN SO MUCH PAIN ID RATHER IN THOSE MOMENTS. BUT NO, I DO NOT WANT TO OR KILL MYSELF" PT DOES NOT HAVE IV ACCESS. COMPLIANS OF PAIN AND MUSCLE SPASMS THAT ARE MEDICATED PER EMAR. PT HAS BEEN COOPERATIVE. BED IN LOW POSITION AND CALL LIGHT WITHIN REACH. ROOM IS CLEAR OF ITEMS THAT MAY AID IN SELF HARM. STAFF WILL CONT TO MONITOR FOR CHANGES.
--- NOTE | 2020-05-31 23:16 | NUR ---
VERIFIED VIDEO MONITORING VERIFIED CAMERA MONITOR IS ON AND FUNCTIONING. 1:1 SITTER IS IN ROOM AND MONITORING WELL
--- NOTE | 2020-06-01 04:12 | NUR ---
SHIFT SUMMARY ADMITTED FOR LEFT PNEUMOTHORAX. DNR CODE. PLAN IS FOR PLACEMENT. PT IS WHEELCHAIR BOUND AT BASELINE. HE HAS MS. HE IS A HIGH SI RISK - 1:[address]. HE DENIES SI. HE STATES, "I DON'T KNOW WHAT HAPPENED. I FEEL SORRY FOR THE STAFF THAT WERE THERE. I DO NOT WANT TO ". PAIN MEDICATION AND MUSCLE SPASM MEDICATION ARE AVAILABLE PRN IN EMAR. DR VORA IS CONSULT. NO NEW CONCERNS THIS SHIFT.
--- NOTE | 2020-06-01 17:01 | NUR ---
SHIFT SUMMARY PT AxOx4. COOPERATIVE WITH CARE. PT BED/CHAIRBOUND D/T ADVANCED MS. PT ON SUICIDE PRECAUTIONS. DR HOLLOWAY REDUCED PATIENT FROM HIGH SI TO MODERATE SI TODAY. 1:1 SITTER REMOVED, CONFIRMED PT ON CAMERA, AND Q4 SAFETY CHECKS DONE. PT SEEMS VERY CHATTY AND UPBEAT WHEN STAFF PRESENT, THEN QUICKLY ACTS DEPRESSED AND DISAPPOINTED WITH HIS STATE OF BEING/LIMITATIONS FROM MS. STATES HE DOESN'T HAVE A PLAN TO TAKE HIS LIFE, BUT HE DOESN'T TRUST HIMSELF EITHER. REPORTS CHRONIC PAIN AND MUSCLE SPASMS. MEDICATED PER EMAR. PT HAD LONG PHONE CALL WITH FAMILY/FRIEND. INTAKE AND OUTPUT WNL. VITALS REVIEWED. PT CURRENTLY RESTING IN BED WATCHING TV. CALL LIGHT IN REACH. DENIES ANY NEEDS AT THIS TIME.
--- NOTE | 2020-06-01 20:25 | NUR ---
PT STATES THAT HE HAS A PLAN BUT N0 MEANS OF ACTING IT OUT. PT STATES HE HAS JUST THOUGHT ABOUT SUICIDE BUT CAN'T ACT ON THEM BECAUSE WE WOULD STOP HIM. PT STATES HE IS WORRIED THAT IF HE TELLS THIS RN THE TRUTH WE WILL "TIE" HIM UP. WILL NOTIFIY THE PROVIDER OF RISK LEVEL INCREASE.
--- NOTE | 2020-06-01 21:12 | NUR ---
EVALUATED PT FOR SUICIDAL IDEATIONS, PT TALKED ABOUT HIS MS AND BEING STUCK IN THE HOSPITAL. HE STATED,"I DON'T WANT TO HURT MYSELF, BUT I SOMETIMES HAVE THESE THOUGHTS, I DON'T KNOW WHY I HAVE THESE THOUGHTS." PT TALKED TO ME ABOUT FUTURE PLANS OF GOING TO AN ASSISTED LIVING PLACE, HE STATED, "THE PERSON ALREADY CAME AND SEEN ME AND SAID I WOULD BE A GOOD FIT." PT APPEARED A LITTLE EXCITED THAT HE WAS TOLD HE WOULD BE A GOOD FIT. PT ALSO, STATED THAT HE HAD FRIENDS THAT CALL HIM AND THAT HE IS [place] AND HIS ORIENTAL ORTHODOX FAMILY CHECK IN ON HIM. SUICIDE REASSESSENT CONTINUES TO BE MODERATE RISK AT THIS TIME.
--- NOTE | 2020-06-02 04:28 | NUR ---
SHIFT SUMMARY NO ACUTE CHANGES THIS SHIFT. PT IS A&O X4, BED/WHEELCHAIR BOUND AT BASELINE. PT IS CURRENTLY MODERATE SI RISK, Q4 SAFETY CHECKS DONE. PT STATES HE DOESN'T WANT TO HARM HIMSELF AND LOOKS FORWARD TO HIS FUTURE AT A ASSISTED LIVING HOME, BUT SOMETIMES HE DOESN'T UNDERSTAND WHY HE HAS THOUGHTS OF HARMING SELF. PT IS CHATTY WHILE STAFF IS IN ROOM, AND QUICKLY BECOMES AGITATED WITH STATE OF MS WHEN STAFF NEEDS TO LEAVE ROOM. MEDICATED FOR PAIN X2 THIS SHIFT OTHERWISE NO OTHER COMPLAINTS. PT IS LAYING IN BED WITH EYES CLOSED, EVEN AND UNLABORED RESPIRATIONS. BED IN LOWERED POSITION WITH ALARM IN PLACE. CALL LIGHT AND PERSONAL ITEMS WITH IN REACH. NO APPARENT NEEDS OR DISTRESS AT THIS TIME, WILL CONTINUE TO MONITOR UNTIL REPORT GIVEN TO DAY RN.
--- NOTE | 2020-06-02 19:16 | NUR ---
shift summary PATIENT MOVED TO LOW SI RISK. MEDICATED PRN FOR PAIN AND MUSCLE SPASMS THROUGHOUT THE SHIFT. TURNING Q2. VSS. NO OTHER CHANGES
--- NOTE | 2020-06-03 04:37 | NUR ---
SHIFT SUMMARY AOX4. VSS. REPORTS / CHRONIC PAIN IN R SHOULDER & BILAT FEET, STATES HIS PAIN MOVES AROUND R/T MS & EVEN THOUGH HE RATES A /10 ITS "PROBABLY MORE 09/21", MEDICATED 2X c 7.5MG PERCOCET PER ORDER. DENIES ANY SI THOUGHTS OR FEELING TONIGHT. DENIES N/V OR DYSPNEA. HAD LRG INCONTINENT BROWN FIRM FORMED BM. AWAITING SAFE DC PLANS. CALL LIGHT IN REACH.
--- NOTE | 2020-06-03 17:14 | NUR ---
UNDID INTERVENTIONS IN I&O'S AND ADL'S BECAUSE CHARTED ON WRONG PATIENT.
--- NOTE | 2020-06-03 17:29 | NUR ---
SHIFT SUMMARY PT A/O X4; PLEASANT AND COOPERATIVE WITH CARE. MEDICATED FOR PAIN AND MUSCLE SPASMS X2 THIS SHIFT. REPORTS CHRONIC PAIN IN HIS SHOULDERS AND MUSCLE SPASMS IN LEGS DUE TO MS. NO ACUTE CHANGES THIS SHIFT. DOES NOT REPORT ANY SUICIDAL THOUGHTS THIS SHIFT AND ACTUALLY REPORTS AN IMPROVEMENT IN MOOD. INCONT WITH ATTENDS IN PLACE. PREVENTATIVE MEPILEX ON COCCYX. VSS. RESTING COMFORTABLY IN BED WITH CALL LIGHT IN REACH.
--- NOTE | 2020-06-04 04:40 | NUR ---
SHIFT SUMMARY NO ACUTE CHANGES THIS SHIFT. AOX4. VSS. REPORTS 5-08/22 PAIN ALLOVER BODY R/T MS, MEDICATED 2X c 7.5MG PERCOCET & 2X c 10MG BACLOFEN FOR MUSCLE SPASMS. PT RESTED WELL TONIGHT. DENIES SI THOUGHTS OR FEELINGS. INCONTINENT & CHANGED PRN. AWAITING SAFE DC PLAN. CALL LIGHT IN REACH & PT ABLE TO MAKE NEEDS KNOWN.
--- NOTE | 2020-06-04 17:30 | NUR ---
Shift Summary A/Ox4, patient was irritable this morning, but much more calmer as the day progressed. Up in recliner for a good portion of the day. Worked with PT, tolerated well. 2 max assist with gait belt for safe transfer. Patient verbalizes accepting the fact that he is needing more assistance. Patient looking forward to a "new beginning" as he transitions to a higher level of care, optimistic and appreciative of help. No new changes, WCTM.
--- NOTE | 2020-06-05 04:17 | NUR ---
SHIFT SUMMARY ASSUMED CARE OF PT AT 1900. PT IS A/OX4. HEART SOUNDS REGULAR, LUNG SOUNDS DIMINISHED IN THE BASES. PT WAS INCONTIENT OF URINE T/O THE NIGHT. PT BOTTOM IS SLIGHTLY DISCOLORED. PT WAS VERY ANXIOUS DURING THE NIGHT AND HAD TROUBLE SLEEPING DESPITE INCREASED DOSE OF TRAZADONE. HOSPITALIST NOTIFIED AND ORDERED ANXIETY MEDICATION. ONE HOUR ATER MEDICATION, PT STILL STAYED AWAKE THINKING ABOUT HIS DISCHARGE. CALL LIGHT IN REACH, BED IN LOWEST POSTION.
--- NOTE | 2020-06-05 17:40 | NUR ---
Shift Summary Medicated for R foot pain and spasm x 1 with good effect. Up in chair for a portion of the day. Tolerated working with PT/OT. Happy demeanor and remains optimistic about discharging to [facility]. No acute changes.
--- NOTE | 2020-06-05 18:32 | NUR ---
listened as pt relaying his stress to nure at not being able to go home. will have chaplian speak with him. will review his medications and reassess to see if we can offer any help.
--- NOTE | 2020-06-05 21:20 | NUR ---
2119 WHILE CHANGING PATIENT. FULL BED CHANGE AND GOWN REQUIRED. REFUSED TO REPLACE VEST; BECAME AGITATED. TOLD PATIENT THAT THIS RN WOULD TRIAL HIM OUT OF THE VEST RESTRAINT. EXPLAINED THAT HE WOULD NEED TO USE CALL SYSTEM IF REQUIRED HELP FROM STAFF. AGREEABLE TO TERMS.
--- NOTE | 2020-06-05 21:37 | NUR ---
PT APPEARED CALMER, ASKING TO HAVE RESTRAINTS OFF. AFTER DISCUSSING IT WITH THE PT'S PRIMARY RN, WE REMOVED THE ANKLE AND WRIST RESTRAINTS. IF THE PT CONTINUES TO BE CALM AND NOT ATTEMPT TO GET OUT OF BED WE WILL ATTEMPT REMOVAL OF THE NAZ RESTRAINT. DISCUSSED THE PLAN WITH THE PT, PT IS NOT HAPPY WITH THE PLAN, DISCUSSED THE NEED FOR HIS SAFETY R/T WHAT HAD HAPPENED FOR HIM TO BE IN THE RESTRAINTS IN THE FIRST PLACE. PT MADE STATEMENTS ABOUT HIS DISCHARGE PLAN AND HIS PARENTS CONTROL OVER HIS FINANCES. PLACED ORDER WITH PRECISION LATHE OPERATOR TO SET UP A MEETING WITH HIS APD EMERGENCY PREPAREDNESS COORDINATOR, THE DR, HIS PARENTS AND THE CORPORATE LEGAL SECRETARY TO ADDRESS THESE CONCERNS. ENCOURAGED PT TO THINK OF POSITIVE THINGS HE CAN DO TO CHANGE THINGS INSTEAD OF NEGATIVE THINGS. PT WAS NOT RECEPTIVE TO THIS IDEA. PT IS ON CAMERA, WILL CONTINUE TO MONITOR HIM. PT'S PRIMARY RN IS AWARE OF THE DISCUSSION AND THE PLAN FOR TONIGHT. CALL LIGHT AND PHONE ARE IN REACH.
--- NOTE | 2020-06-05 22:30 | NUR ---
2229 CALL FROM CAMERA MONITORING STATING PATIENT ATTEMPTING TO GET OUT OF BED. DIGITAL PRE PRESS OPERATOR IN TO REMIND HIM THAT HE IS NOT ABLE TO GET UP WITHOUT ASSISTANCE. BECAME VERY AGITATED STATING "SHE TOOK IT FROM ME", THE PILLOW. ON ARRIVAL PATIENT WAS HOLDING PILLOW AND SITTING AT EDGE OF BED. GETTING VISIBLY UPSET. REFUSING TO RETURN TO BED. CALLED FOR ASSISTANCE FROM SECURITY TO REPLACE NAZ. PATIENT VERY RESISTANT TO ALL CARE.
--- NOTE | 2020-06-06 05:02 | NUR ---
SHIFT SUMMARY ALERT, ABLE TO MAKE NEEDS KNOWN. AGITATED AND ANGRY. RESISTANT TO CARE THIS SHIFT. C/O PAIN/DISCOMFORT TO RLE; MEDICATED PER EMAR. ABLE TO GET SOME REST AFTER AROUND 0200. REMAINS INCONTINENT WITH ROUTINE ATTENDS CHANGES. ABLE TO CHANGE OWN POSITION FREELY WHILE IN BED. BED REMAINS IN LOWEST POSITION; ALARM ON. SIDE RAILS X4 WITH NAZ FOR SAFETY. CALL LIGHT WITHIN REACH. CONTINUE WITH CURRENT PLAN OF CARE. REPORT TO ONCOMING RN.
--- NOTE | 2020-06-06 06:07 | NUR ---
0605 C/O PAIN/DISCOMFORT; MEDICATED PER EMAR. REFUSED ANY OTHER CARE. NO TO VITALS "DONT TOUCH ME"!. ASKED IF PATIENT WANTED CHILD DEVELOPMENT CONSULTANT AND THIS RN TO CHANGE HIS ATTENDS. "NO, LEAVE ME ALONE"!
--- NOTE | 2020-06-06 11:31 | NUR ---
[id number] YELLING AND SCREAMING AT STAFF. THREW BREAKFAST TRAY. STATES EVERYONE WANTS HIM TO AND EVERYONE IS LAUGHING AT HIM. REFUSED VITAL SIGNS. 0900 PT FOUND WITH BLANKET WRAPPED AROUND HIS NECK AND PULLING TIGHT. TALKED TO PT ABOUT WHY HE IS UPSET. HE IS UPSET BECAUSE HIS PARENTS ARE 'HOLDING BACK AND STEALING HIS MONEY AND NOT PAYING FOR ASSISTED LIVING', I REASSURED HIM THAT I WOULD LOOK INTO IT. HE CALMED DOWN, TOOK MEDICATIONS. TRIALING OUT OF RESTRAINTS, HE IS MUCH CALMER. HE PROMISES HE WILL NOT TRY TO HURT HIMSELF AGAIN TODAY, AND HE WILL CALL IF HE NEEDS TO GET OUT OF BED. FREQUENT CHECKS PERFORMED, BED ALARMS ON, MONITOR CALLED AND UPDATED. DR DECKER CALLED AND UPDATED. DR VORA ALSO SEEN IN HALLWAY AND UPDATED.
--- NOTE | 2020-06-06 18:41 | NUR ---
SHIFT SUMMARY PT YELLING, THROWING FOOD, ATTEMPTED TO STRANGLE HIMSELF WITH HIS BLANKET THIS MORNING (SEE EARLIER NOTE), DR DECKER AND DR VORA AWARE. MIDMORNING, SPENT A CONSIDERABLE AMT OF TIME LISTENING AND THIS HELPED. GOT UP IN CHAIR WITH AO2 AND GAIT BELT, AND THEN HE SAID HE WANTED TO LEAVE AMA TO GO HOME AND 'DO WHAT NEEDS TO BE DONE, EVEN THOUGH I KNOW I SHOULDN'T'. PUT ON 2 MD HOLD. INCONTINENT URINE THIS SHIFT. HAD VISITOR ALL AFTERNOON WHICH HELPED, ALSO PRN ATIVAN HELPED. CALL LIGHT IN REACH, BED ALARM ON, PT CONTRACTED FOR SAFETY
--- NOTE | 2020-06-07 06:19 | NUR ---
SHIFT SUMMARY NO ACUTE CHANGES THIS SHIFT, HAS BEEN COOPERATIVE W/CARE, MEDICATED PER MAR FOR PAIN AND ANXIETY, PT SPENT SEVERAL HOURS TALKING TO FRIENDS AND FAMILY VIA PHONE THIS SHIFT, VSS, CALL LIGHT IN REACH, BED ALARM ACTIVE, WILL CONT TO MONITOR UNTIL REPORT GIVEN TO DAY RN.
--- NOTE | 2020-06-07 18:42 | NUR ---
SHIFT SUMMARY MARLENE'S MOOD WAS LABILE THIS SHIFT. VERY UPSET IN THE MORNING, YELLING 'I WANT TO GET OUT OF HERE' CONTINUOUSLY. VERY UPSET THAT HIS PARENTS 'STOLE HIS MONEY'. IRRATIONAL THINKING, DIFFICULT TO REDIRECT. HAD A VISITOR THIS AFTERNOON. ATTENTION-SEEKING BEHAVIOR. THREATENS TO THROW FOOD AND SCREAM UNTIL HE GETS THE MEDS HE WANTS. UP TO CHAIR WITH AO2. SUICIDAL PRECAUTIONS IN PLACE. PT STATES HE WILL LIE AND SAY 'NO' TO ALL QUESTIONS OF SUICIDE, HE KNOWS THEY WILL HOLD THAT AGAINST HIM IN COURT AND HE WANTS TO BE ABLE TO GO HOME TO END IT ALL. CALL LIGHT IN REACH, SAFE ENVIRONMENT ENSURED, REPORT GIVEN TO NIGHT NURSE
--- NOTE | 2020-06-08 04:33 | NUR ---
SHIFT SUMMARY PT PARANOID AND IRRITABLE AT START OF SHIFT, ACCUSING STAFF OF "BEING ON MY PARENTS SIDE" AND HELPING THEM, HAD A COUPLE OF PHONE CALLS WHICH SEEMED TO HELP WITH HIS MOOD, PT DID STATE THAT HE CRIED MOST OF THE DAY, COOPERATIVE W/CARE REMAINDER OF SHIFT, SLEPT T/O THE NIGHT, WILL CONT TO MONITOR UNTIL REPORT GIVEN TO DAY RN.
[2020-06-08 05:58] LABS: Albumin, Blood 2.9 g/dL (3.4-5.0); Anion Gap 4 mmol/L (6-16); Blood Urea Nitrogen 25 mg/dL (8-24); Bun/Creatinine Ratio 37.3 (12.0-20.0); CO2, Blood 29 mmol/L (21-32); Calcium, Blood 8.5 mg/dL (8.5-10.1); Chloride, Blood 106 mmol/L (98-108); Creatinine, Blood 0.67 mg/dL (0.60-1.20); Glomerular Filtration Rate >60 (60-); Glucose, Blood 82 mg/dL (70-99); Phosphorus, Blood 4.1 mg/dL (2.5-4.9); Potassium, Blood 4.3 mmol/L (3.5-5.5); Sodium, Blood 139 mmol/L (136-145)
--- NOTE | 2020-06-08 10:53 | NUR ---
DURING PT'S BEDBATH, PT TALKED ABOUT KILLING HIMSELF. I LET NURSE KNOW AND TOOK AT ALL LONG CORDS FROM ROOM. PT WAS UPSET AND STARTED YELLING THAT HE ISN'T GOING TO DO IT HERE BUT WHEN HE GETS HOME. SAID HE LET THE DR KNOW.
--- NOTE | 2020-06-08 12:06 | NUR ---
PT RECEIVED BEDBATH FROM VENETIAN BLIND MECHANIC, WHILE BEDBATH WAS TAKING PLACE VENETIAN BLIND MECHANIC STATED PT VOICED INTENT TO KILL SELF ONCE DISCHARGED. FOR SAFETY VENETIAN BLIND MECHANIC REPLACED TV CONTROLE WITH SHORT CABLE AND TOOK OUT PHONE. VENETIAN BLIND MECHANIC TOLD THIS RN OF INTENT BEFORE ACTION AND THIS RN AGREED WITH THE PLAN. PATIENT BECAME AGITATED AND THREATENED TO "TEAR THIS PLACE APART" "TO CALL SECURITY" WE WILL NOT LIKE WHAT HE WILL DO. CALLED DR. HOLLOWAY AND WAS GIVEN THE VERBAL OKAY FOR PATIENT TO HAVE TV REMOTE AND PHONE BACK. PT IS CALMER AFTER RECEIVEING ITEMS BACK BUT HAS STATED THAT HE WILL NOT LONGER BE TALKING TO STAFF AND TELLING THE TRUTH IT GETS HIM IN TROUBLE. PT STATES THAT STAFF OVERSTEPPED AND USED THEIR POWER AGAINST HIM.
--- NOTE | 2020-06-08 18:03 | NUR ---
DURING SHIFT PT HAS STATED INTENTION OF COMMITING SUCIDE ONCE BEING DISCHARGE.
--- NOTE | 2020-06-08 19:23 | NUR ---
SHIFT SUMMARY PT A&OX4. PT HAS STATED THROUGH OUT SHIFT THAT HE PLANS ON COMMITTING SUICIDE ONCE HE DISCHARGES HOME, PT PLANS ON GETTING "LOTS OF POT" AND THEN WILL THROW SELF OVER [place] WITH A NOTE. IN AFTERNOON PT WAS IN TEARS AND WAS FRUSTRATED THAT HE COULD NOT GO HOME AND LACK OF PROGRESS TO GET DISCHARGE. DR. HOLLOWAY NOTIFIED AND VISITED WITH PATIENT, PT GIVEN ONE TIME DOSE OF ATIVAN. AFTER VISIT SIMÓN HOLLOWAY AND TALKING WITH THIS NURSE AND NUT CHOPPER PT STARTED TO CHANGE ADDITUDE. AT END OF SHIFT PT DECIDED THAT INSTEAD OF CRYING HE WILL FOCUSE ON REHABBING TO GET BETTER. PT HAVE A SPIRTUAL VISITOR AND ATTENDING A ZOOM MEETING. PT SEEMS TO BE IN BETTER SPIRITS.
--- NOTE | 2020-06-09 05:24 | NUR ---
SHIFT SUMMARY PT HAS RESTED MOST OF THE NIGHT. PT HAD A VISIT FROM [facility] THIS SHIFT, WHICH APPEARS TO HAVE LIFTED HIS MOOD. PT PLESANT AND COOPERATIVE WITH STAFF. HE DENIES SI THIS SHIFT. PT REMAINS ON MODERATED SI PRECAUTIONS. CAMERA IN PLACE. PT MEDICATED FOR PAIN AND ANXIETY PRN THIS SHIFT. NO ACUTE CHANGES TO REPORT. BED IN LOWEST POSITION, CALL LIGHT WITHIN REACH.
--- NOTE | 2020-06-09 08:38 | NUR ---
UPON SHIFT ASSESSMENT, PT REPORTS BEING HOPEFUL, STATING THAT HE HAS A GIRL HE'S BEEN TALKING TO ON THE PHONE. TALKING ABOUT PLANS FOR THE FUTURE, STOPPING MARIJUANA AT HOME BECAUSE IT "MAKES (HIM) FEEL LAZY" HE ALSO STATES THAT HE'S BEEN DOING EXERCISES IN HIS BED AND ALREADY FEELS STRONGER. PT EATING BREAKFAST AT THIS TIME.
--- NOTE | 2020-06-09 17:04 | NUR ---
SHIFT SUMMARY PT AXO, PLEASANT AND COOPERATIVE WITH CARE THOUGH FORGETFUL. PT REPEATING SAME STORY TO NURSE EVERY TIME THIS NURSE ENTERS ROOM. VSS. PT DENIES SI AT THIS TIME. PT VISITING ON PHONE THOUGHOUT THE DAY. SEE PRIOR NOTE. VSS. PT MEDICATED FOR PAIN AND ANXIETY PER EMAR. NO OTHER CHANGES THIS SHIFT. PT UP TO CHAIR FOR MOST OF THE SHIFT. BED IN LOW POSITION, CALL LIGHT WITHIN REACH
--- NOTE | 2020-06-10 04:42 | NUR ---
SHIFT SUMMARY PT HAS BEEN MOSTLY WITHDRAWN AND DISCOURAGED THIS SHIFT. PT EXPRESSES FEAR THAT HE FEELS THAT THERE WON'T BE A PLACE FOR HIM TO DISCHARGE TO AND FEELS STUCK IN THE HOSPITAL. PT REMINDED THAT PLANT PATHOLOGIST AND DISCHARGE PLANNING ARE WORKING TO FIND HIM A PLACE. PT AT ONE POINT YELLING OUT, AND TEARFUL. SUPPORT AND ENCOURAGEMENT PROVIDED TO PT. PT DENIES SI THIS SHIFT. SI PRECAUTIONS IN PLACE. PT MEDICATED FOR PAIN AND ANXIETY PRN THIS SHIFT. ASSESSMENT REMAINS UNCHANGED. BED IN LOWEST POSITION, CALL LIGHT WITHIN REACH.
--- NOTE | 2020-06-10 07:54 | NUR ---
CRYING OUT IN PAIN WHEN ARRIVED TO GIVE PERCOCET AND OTHER AM MEDS, DEMANDS ATIVAN AND BACLAFIN, ATIVAN NOT AVAILABLE UNTIL 0900 GAVE SPASAM AND PAIN MEDS, CONTINUED TO COMPLAIN, FULL ASSESMENT, STATES LEGS EXCEPT WHEN SPASAM, LS DIMINISHED PARTIALLY DUE TO LACK OF FULL BREATH, HR STEADY, ADJUSTED IN BED AND PT STATED PAIN WAS REDUCED, PILLOW UNDER LEGS, WILL CONTINUE TO MONTITOR AND TREAT
--- NOTE | 2020-06-10 19:51 | NUR ---
very angry and combative at times threw drinks and boxes at door when informed that his pain medication was not available for another 30 minutes during bsr, no acute changes noted during shift, would calm down when approached slowly and calmly, call light in reach, medicated as prescribed, bed in low position
--- NOTE | 2020-06-10 20:03 | NUR ---
PATIENT SLID HIMSELF OUT OF BED AND TRIED CRAWLING ACROSS THE FLOOR IN AN ATTEMPT TO GET OUT OF THE HOSPITAL WITNESSED BY BASIL STOUT AND THIS RN. NOTIFIED REACTOR SERVICE OPERATOR PHYSICIAN, DR CORTEZ, OF THIS AND ASKED FOR AN ORDER FOR A NAZ VEST RESTRAINT. DR CORTEZ OKAYED THE ORDER.
--- NOTE | 2020-06-10 21:10 | NUR ---
Pt was extremely agitated upon the start of my shift. Pt was cursing,attempting to hit, and throwing items such as water cups/food utenils at staff. Pt finally calmed down and fell asleep. Pt's nurse instructed me to not wake Pt in order to get start of shift vital signs until Pt wakes up.
--- NOTE | 2020-06-11 01:51 | NUR ---
PHYSICIAN COMMUNICATION CONTACTED STRAIGHTENING PRESS OPERATOR PHYSICIAN, DR GIRARD, AT 0106 TO NOTIFY HER THAT THE PATIENT WAS IN A NAZ AND HAD GOTTEN A HOLD OF ONE OF HIS NAZ STRAPS WHEN THIS RN AND A VAMP CREASER, FARNAZ, WERE CHANGING HIS BRIEF AND WAS THREATENING TO STRANGLE CARE STAFF. SECURITY HAD TO BE CALLED TO GET IT AWAY FROM HIM. DR GIRARD ORDERED FOR SOFT WRIST RESTRAINTS TO BE ADDED TO THE NAZ VEST.
--- NOTE | 2020-06-11 06:35 | NUR ---
Pt has been extremely agitated and violent consistently throughout the shift. Pt has screamed/yelled, made verbal threats, and threw water cups/eating utensils at staff. Pt refused to let staff perform vital signs both at the start of the shift and at the end of the shift.
--- NOTE | 2020-06-11 06:40 | NUR ---
SHIFT SUMMARY PATIENT ALERT AND ORIENTED. HE HAS BEEN VERY ANGRY TONIGHT. AT BEGINNING OF SHIFT HE SLID HIMSELF OUT OF BED AND ONTO THE FLOOR, A RESULT HE WAS PLACED IN A NAZ VEST. PATIENT LATER CALLED THE POLICE TO TELL HIM THAT HE WAS "BEING HELD HOSTAGE AND LAYING IN HIS OWN PISS". WHEN THIS RN AND MACHINE LOADER WERE CHANGING HIM, HE GOT A HOLD OF ONE OF THE STRAPS FROM THE NAZ AND WAS THREATENING TO STRANGLE CARE STAFF, LUNGING TOWARDS THIS RN. THIS RN CALLED SECURITY AND THE PATIENT WAS PLACED IN SOFT WRIST RESTRAINTS WELL. PATIENT CONTINUES TO BE VERBALLY THREATENING TOWARDS STAFF. PATIENT HAS BEEN MEDICATED NEEDED PER EMAR FOR PAIN, ANXIETY, AND MUSCLE SPASMS. BED IN LOWEST POSITION WITH WHEELS LOCKED AND ALARM ON. CALL LIGHT WITHIN REACH. REPORT GIVEN TO ONCOMING RN.
--- NOTE | 2020-06-11 16:55 | NUR ---
SHIFT SUMMARY PT AWAKE, YELLING THREATS AND CURSING STAFF AT START OF SHIFT. PT ANGRY AND UNCO-OP FOR UNKNOWN REASON. PT REFUSING CARE AND NOT ALLOWING DIGITAL COMPUTER OPERATOR TO OBTAIN AM SHIFT VS. PT VERY RUDE AND VERBALLY ABUSIVE, THREATENING TO KILL ALL OF US. PT ONLY AGREED TO MEDICATIONS OF HIS CHOICE. DR HOLLOWAY LATER IN TO SEE PT, WHO WAS STILL VERY ANGRY AND AGITATED AT THAT TIME. PT WAS A 3 PERSON TURN AND CHANGE FIRST SEVERAL HOURS. INFERTILITY NURSE CALLED TO REPORT A ZOOM MEETING WITH POSSIBLE FAUCILTY IN [place]. PT WAS AGREEABLE AND PLEASANT. PT AGREED TO BE CO-OP AND NONVIOLENT, IF TAKEN OUT OF RESTRAINTS. SOFT WRIST REMOVED FIRST. AND SHORT TIME LATER VEST ALSO. PT HAS BEEN PLEASANT AND CO-OP TO PRESENT, SINCE TALKING INFERTILITY NURSE AND OTHER FAUCILITY. BED ALARM ON FOR SAFETY. CALL LT IN REACH. MEDICATED PER EMAR, AND PT REQUEST, FOR C/O LEG/FOOT PAIN.
--- NOTE | 2020-06-12 05:24 | NUR ---
RAG GRADER SUMMARY PT A/O X3-4. PT HAS SLEPT WELL AND BEEN PLEASANT OVERNIGHT. MEDICATED ONCE FOR PAIN OVERNIGHT. MEDICATED FOR ANXIETY WELL. ROOM AIR, DENIES SOB. PT USES CALL LIGHT APPROPRIATELY. VITALS STABLE THIS MORNING. NO ACUTE CHANGES. CALL LIGHT WITHIN REACH, BED ALARM ON.
--- NOTE | 2020-06-12 18:38 | NUR ---
PATIENT REMAINS ON 2 MD HOLD, BUT IS NO LONGER ON SI PRECAUTIONS. UP TO CHAIR WITH PT TODAY, PIVOT TRANSFER TO CHAIR. ATIVAN GIVEN X2 TODAY FOR ANXIETY. PERCOCET GIVEN TO TREAT BLE PAIN. VSS, ON RA. SKIN INTACT. INCONTINENT OF URINE, WEARING ATTENDS. AWAITING PLACEMENT AT AN ASSISTED LIVING FACILITY. CALM AND COOPERATIVE WITH CARE TODAY.
--- NOTE | 2020-06-13 05:48 | NUR ---
SHIFT SUMMARY: VSS. AFEB. 02 94% ON RA. RESPS EVEN, UNLABORED. AAOX3. ABLE TO COMMUNICATE NEEDS. TEARFUL ON OCCASION AND EXPRESSING ANXIETY AND FEAR OVER THE YELLING HE HEARS FROM OTHER PT'S IN THE UNIT. ATTEMPTED TO REASSURE PT OF HIS SAFETY W/ LITTLE EFFECT. MED FOR ANXIETY X 2 AND PAIN X1. PT APPEARS TO HAVE SLEPT WELL. NO ACUTE OVERNIGHT EVENTS.
--- NOTE | 2020-06-13 17:42 | NUR ---
PATIENT GAVE PERMISSION TO GIVE CARE ON 06/13/20.
--- NOTE | 2020-06-13 18:14 | NUR ---
NO ACUTE CHANGES THIS SHIFT. PATIENT UP WITH PIVOT TRANSFER TO CHAIR TODAY. IN BETTER SPIRITS TODAY AFTER FINDING OUT HE WAS ACCEPTED TO [facility] IN [place]. PERCOCET GIVEN TO TREAT LEG PAIN AND ATIVAN FOR ANXIETY. PATIENT CALM AND COOPERATIVE WITH CARE TODAY. FALL PRECAUTIONS IN PLACE.
--- NOTE | 2020-06-14 05:47 | NUR ---
SHIFT SUMMARY: VSS. TEMP 99.2. 02 95-99% ON RA. LSCTA. RESPS EVEN, NON-LABORED. NO SOB, NO COUGH. MED FOR PAIN AND ANXIETY X 1 TONIGHT. MOOD HAS BEEN GOOD. PT LAUGHING AND JOKING W/ STAFF. HAPPY ABOUT PLACEMENT PLANS. MOTIVATED TO INCREASE HIS STRENGTH AND MOBILITY. PT WAS PERFORMING PASSIVE ROM ON HIS OWN R LEG. WEARING CONDOM CATH TO MANAGE HS INCONTINENCE. PT SLEPT THROUGH MOST OF THE NIGHT. NO ACTUE CHANGES.
--- NOTE | 2020-06-14 20:16 | NUR ---
SHIFT SUMMARY- PT HAS HAD NO ACUTE CHANGE TODAY T/O THE SHIFT. PT REQUESTED A CONDOM CATH FOR HIS INCONTINENCE TO HEP DECREASE THE FREQUENCY OF BED CHANGES TO HELP REDUCE HIS PAIN. PT STATED THE PAIN IS ALWAYS THERE BUT SEEMS BETTER WITH LESS ROLLING AND CHANGING. PASSED ALL ON TO NIGHT RN IN BEDSIDE REPORT.
--- NOTE | 2020-06-15 04:20 | NUR ---
SHIFT SUMMARY PATIENT HAD NO ACUTE CHANGES OBSERVED. STAND PIVOT TO BSC. NO IV ACCESS. VSS/AFEBRILE. TAKES MEDICATION WHOLE WITH WATER. DENIES PAIN, SOB, AND N/V. PATIENT CALM AND COOPERATIVE. ON PHONE T/O SHIFT. CALL LIGHT IN REACH. BED IN LOWEST POSITION. WILL CONTINUE TO MONITOR UNTIL DAY SHIFT NURSE ASSUMES CARE.
--- NOTE | 2020-06-15 19:05 | NUR ---
SHIFT SUMMARY: NO ACUTE CHANGES TO REPORT THIS SHIFT. PT A&O; CALM AND COOPERATIVE WITH CARE. MEDICATED FOR PAIN & ANXIETY PER EMAR. CONDOM CATH IN PLACE; PATENT & DRAINING. NO IV. MEDICALLY STABLE; AWAITING SAFE D/C PLAN; EXPECTED D/C TO [facility] ON Jun. REPORT GIVEN TO ONCOMING RN.
--- NOTE | 2020-06-15 22:28 | NUR ---
PATIENT REPORTS FEELING DEPRESSED LOSSING HIS APARTMENT AND HAVING TO DISCHARGE TO ANOTHER FACILITY. REPORTS HE WON'T HAVE FRIENDS AROUND OR THE OPPORTUNITY TO SAY GOODBYE TO OTHERS. THERAPEUTIC COMMUNICATION PROVIDED. PATIENT STARTED ANOTHER TOPIC IN CONVERSATION. CALL LIGHT IN REACH.
--- NOTE | 2020-06-16 04:37 | NUR ---
SHIFT SUMMARY PATIENT DEPRESSED AT START OF SHIFT REPORTING HE IS LOSSING HIS APARTMENT HE HAS BEEN IN FOR 14 YEARS. THERAPEUTIC COMMUNICATION PROVIDED AND PATIENT ABLE TO CHANGE SUBJECT. ATARAX GIVEN FOR ANXIETY. AXOX 3 AND BEDREST. VSS/AFEBRILE. DENIES SOB AND N/V. ABLE TO SLEEP T/O THE SHIFT. PENDING PLACEMENT. CALL LIGHT IN REACH. BED IN LOWEST POSITION. WILL CONTINUE TO MONITOR UNTIL DAY SHIFT NURSE ASSUMES CARE.
--- NOTE | 2020-06-16 19:53 | NUR ---
SHIFT SUMMARY: NO ACUTE CHANGES TO REPORT THIS SHIFT. PT A&O; CALM AND COOPERATIVE WITH CARE.HX MS; UP c 1-2 ASSIST STAND-PIVOT TO CHAIR. MEDICATED FOR PAIN & ANXIETY PER EMAR. EXPECTED D/C TO FACILITY SUNDAY 06/18. REPORT GIVEN TO ONCOMING RN.
--- NOTE | 2020-06-17 03:52 | NUR ---
SHIFT SUMMARY PATIENT HAD NO ACUTE CHANGES OBSERVED. AXOX 3 AND BEDREST. REPORTS LEG PAIN AND ANXIETY. PERCOCET AND ATIVAN GIVEN PER EMAR. VSS/AFEBRILE. DENIES SOB AND N/V. WATCHED TV AND ABLE TO SLEEP MOST OF SHIFT. COOPERATIVE WITH CARE. CALL LIGHT IN REACH. BED IN LOWEST POSITION. WILL CONTINUE TO MONITOR UNTIL DAY SHIFT NURSE ASSUMES CARE.
[2020-06-17] MEDS ORDERED: BACL10 PO (15:43)
[2020-06-17] MEDS ORDERED: BISA10S PR (15:44)
[2020-06-17] MEDS ORDERED: DOCU100 PO (15:46)
[2020-06-17] MEDS ORDERED: HYDHCL25 PO (15:47)
[2020-06-17] MEDS ORDERED: IBUP400 PO (15:48)
[2020-06-17] MEDS ORDERED: Ativan1 MG PO (15:50)
[2020-06-17] MEDS ORDERED: Milk Of Ma400 MG/5 M PO (15:51)
[2020-06-17] MEDS ORDERED: OXYACE7.5T PO (15:52)
[2020-06-17] MEDS ORDERED: ONDA4ODT MM (15:52)
[2020-06-17] MEDS ORDERED: LYRICA50 M1 PO (15:56)
[2020-06-17] MEDS ORDERED: OCEAN104 ML (15:59)
[2020-06-17] MEDS ORDERED: TRAZ150T57 PO (16:01)
--- NOTE | 2020-06-17 18:37 | NUR ---
SHIFT SUMMARY PT IS AOX4. PT IS UPSET AND AGITATED THIS GIOVANA. PT MEDICATED FOR PAIN X2 AND SPASMS X1. PT DENIES N/V, SOB. PLAN IS FOR DC TOMORROW. APPETITE IS GOOD. PT DID NOT HAVE VISITORS TODAY. PT IS IN BED, CALL LIGHT IN REACH, BED IN LOW POSITION.
--- NOTE | 2020-06-18 05:53 | NUR ---
SUMMARY: PT A/OX4, PLEASANT AND COOPERATIVE W/CARE AND SPECIFIED NEEDS. HE WAS MEDICATED FOR PAIN R/T MS W/PERCOCET, BACLOFEN AND ATIVAN PRN FOR GOOD EFFECT. PT ASSISTED W/REPOSITIONING T/O NOCTE. HE C/O OF DIFFICULTY HAVING BM SO MOM WAS GIVEN PRN IN ADDITION TO SCHEDULED COLACE. PT WAS THEN INCONTINENT OF XL HARD BM AND REPORTED RELIEF. CONDOM CATH REMAINS INTACT AND DRAINING. SNACKS PROVIDED PRN AND PT SLEPT INTERMITTENTLY T/O NOCTE. NO ACUTE CHANGES, VSS AND AFEBRILE. WCTM AND REPORT TO DAY RN.
--- NOTE | 2020-06-18 15:01 | NUR ---
PATIENT ALERT AND ORIENTED. VITALS STABLE. PATIENT REMAINS IN HOSPITAL PENDING PLACEMENT, HOPEFULLY LATER THIS WEEK. NO ACUTE CHANGES TO REPORT OF AT THIS TIME. VISITOR AT BEDSIDE. CALL LIGHT WITHIN REACH.
--- NOTE | 2020-06-19 05:50 | NUR ---
SUMMARY: PT A/OX4, PLEASANT AND COOPERATIVE AND CALLS APPROPRIATELY TO SPECIFY NEEDS. ATIVAN PO RECIEVED PRN BUT PT DIDN'T REQUEST PRN PAIN MEDS THIS SHIFT. HE'S HAD NASAL SPRAY X2 DOSES FOR IMPROVEMENT IN CONGESTIONS. ATTENDS CHANGED PRN FOR INCONTINENCE. PLACEMENT PENDING W/ANTICIPATED D/C TO [facility]. VSS/AFEBRILE, NO ACUTE CHANGES. WCTM AND REPORT TO DAY RN.
--- NOTE | 2020-06-19 10:35 | NUR ---
Received call from Facility Coordinator reporting Pt D/C tomorrow to facility and will need POLST completed. Spoke with Bedside RN Norma and discussed case. Pt resting in bed upon arrival. Engaged in therapeutic discussion regarding POLST. Pt agreeable for this RN to assist with completing POLST. Educated on life sustaining treatment including risk factors and implications. POLST completed with Pt's wishes to be DNR and Limited Interventions. Pt expresses appreciation and reports no other concerns. Will obtain copy of POLST upon MD signature.
[2020-06-19 13:05] LABS: Influenza A, PCR NEGATIVE (NEGATIVE); Influenza B, PCR NEGATIVE (NEGATIVE); Resp Syncytial Virus, PCR NEGATIVE (NEGATIVE); SARS-Cov-2 (COVID-19) PCR, MMC NEGATIVE (NEGATIVE)
--- NOTE | 2020-06-19 18:24 | NUR ---
SHIFT SUMMARY PATIENT MEDICATED X2 FOR PAIN AND X1 FOR ANXIETY. DENIES NAUSEA AND SHORTNESS OF BREATH. WORKED WITH PT TODAY, UP IN CHAIR THIS AFTERNOON. TRANSFERED 1 ASSIST STAND PIVOT BACK TO BED. DISCHARGE TO [facility] PLANNED FOR TOMORROW. COVIDE TEST NEGATIVE, CARE MANAGEMENT ORDEREING PATIENT WHEELCHAIR. PLEASANT AND COOPERATIVE WITH CARE.
--- NOTE | 2020-06-20 06:25 | NUR ---
SHIFT SUMMARY PATIENT ALERT AND ORIENTED. HE HAS BEEN HAPPY AND PLEASANT TO WORK WITH OVERNIGHT. MEDICATED PER EMAR FOR PAIN AND NASAL CONGESTION. PATIENT SLEPT WELL OVERNIGHT. NO ACUTE ISSUES NOTED. BED IN LOWEST POSITION WITH WHEELS LOCKED AND ALARM ON. CALL LIGHT WITHIN REACH. REPORT GIVEN TO ONCOMING RN.
--- NOTE | 2020-06-20 10:50 | NUR ---
PT DISCHAGED AT 1018 VIA WHEEL CHAIR. WHEEL CHAIR WAS PT'S BROUGHT IN THIS AM. PT AOX4 AND COOPERATIVE OF CARE. PT DRESSED AND HELPED INTO CHAIR BY AID. PT TREATED FOR ANXIETY AND PAIN PER EMAR. NO DISTRESS NOTED AND HAPPY TO BE LEAVING HOSPITAL. PT PACKET SENT WITH COOK HELPER DESSERT.
== END 2020-06-20 10:21 | DRG 190 ==
LOC: ER 09:14 → ERHOLD 09:15 → PCU 09:15 → MEDS 04-30 12:12
PROVIDERS: Emergency Medicine; Family Medicine; Hospitalist; Internal Medicine; Internal Medicine Critical Care Medicine; Surgery; ADMIT Internal Medicine
PROC: 0W9B30Z Drainage of Left Pleural Cavity with Drainage Device, Percutaneous Approach (ICD-10-PCS; principal; 2020-05-05 17:30)
PROC: 0WPBX0Z Removal of Drainage Device from Left Pleural Cavity, External Approach (ICD-10-PCS; 2020-05-20)
DX: J43.9 Emphysema, unspecified (principal); J18.9 Pneumonia, unspecified organism; G92 Toxic encephalopathy; J93.12 Secondary spontaneous pneumothorax; R45.851 Suicidal ideations; Z66 Do not resuscitate; Z20.822 Contact with and (suspected) exposure to COVID-19; J98.2 Interstitial emphysema; N50.89 Other specified disorders of the male genital organs; G35 Multiple sclerosis; G89.29 Other chronic pain; I10 Essential (primary) hypertension; F32.9 Major depressive disorder, single episode, unspecified; F12.90 Cannabis use, unspecified, uncomplicated; G47.9 Sleep disorder, unspecified; F43.10 Post-traumatic stress disorder, unspecified; K59.00 Constipation, unspecified; Z87.891 Personal history of nicotine dependence; Z98.890 Other specified postprocedural states; Z99.3 Dependence on wheelchair; Z91.013 Allergy to seafood
CPT/HCPCS: 0241U; 32551; 36415; 71045; 71046; 71250; 71260; 80048; 80053; 80069; 82103; 82104; 83880; 84484; 85014; 85018; 85025; 85027; 87070; 87205; 93005; 93010; 94640; 94760; 94762; 96365; 96367; 96368; 96372-59; 96374-59; 96375; 96375-59; 96376; 97110; 97162; 97165; 97530; 97535; 99285-25; A9270; A9270-GY; G0378; J0456; J0696; J1170; J1650; J1885; J2060; J2250; J2405; J2704; J3010; J7050; J7120; Q9967

== ENCOUNTER 2020-12-17 16:29 | Emergency (ER) | payer MEDICARE, OTHER ==
[~2020-12-17] VITALS: Ht 182.9 cm; Wt 54.4 kg
[~2020-12-17 16:29] MED LIST changes: +Ativan1 MG PO; +BACL10 PO; +BISA10S PR; +DOCU100 PO; +HYDHCL25 PO; +IBUP400 PO; +LYRICA50 M1 PO; +Milk Of Ma400 MG/5 M PO; +OCEAN104 ML; +ONDA4ODT MM; +OXYACE7.5T PO; +TRAZ150T57 PO
== END 2020-12-17 18:26 | disposition home or self-care (01) ==
LOC: ER 16:29
DX: S00.83XA Contusion of other part of head, initial encounter (principal); Z91.013 Allergy to seafood; Z79.899 Other long term (current) drug therapy; W19.XXXA Unspecified fall, initial encounter; W07.XXXA Fall from chair, initial encounter
CPT/HCPCS: 99283

== ENCOUNTER 2020-12-30 16:35 | Emergency (ER) | payer MEDICARE, OTHER ==
[~2020-12-30] VITALS: Ht 182.9 cm; Wt 54.4 kg
[2020-12-30 17:23] LABS: BASOPHILS ABSOLUTE AUTO 0.04 K/mm3 (0.00-0.23); BASOPHILS PERCENT AUTO 0 % (0-2); EOSINOPHILS PERCENT AUTO 0 % (0-6); Hematocrit 42.2 % (37.0-53.0); Hemoglobin 14.3 g/dL (13.5-17.5); IMMATURE GRAN ABSOLUTE AUTO 0.05 K/mm3 (0.00-0.10); IMMATURE GRAN PERCENT AUTO 0 % (0-1); LYMPHOCYTES ABSOLUTE AUTO 0.67 K/mm3 (0.84-5.20); LYMPHOCYTES PERCENT AUTO 5 % (21-46); MONOCYTES ABSOLUTE AUTO 0.52 K/mm3 (0.16-1.47); MONOCYTES PERCENT AUTO 4 % (4-13); Mean Corpuscular HGB 31.2 pg (26.0-34.0); Mean Corpuscular HGB Conc 33.9 g/dL (31.5-36.5); Mean Corpuscular Volume 92 fL (80-100); Mean Platelet Volume 9.2 fL (9.1-12.4); NEUTROPHILS ABSOLUTE AUTO 13.75 K/mm3 (1.96-9.15); NEUTROPHILS PERCENT AUTO 91 % (41-73); Platelet Count 430 K/mm3 (150-400); RDW Coefficient Variation 12.1 % (11.7-14.2); RDW Standard Deviation 41.2 fL (35.1-46.3); Red Blood Cell Count 4.59 M/mm3 (4.30-5.90); White Blood Cell Count 15.03 K/mm3 (4.00-11.30)
[2020-12-30] MEDS ORDERED: BISA10S PR (17:29)
[2020-12-30] MEDS ORDERED: BACLOFEN10 M4 PO (17:29)
[2020-12-30] MEDS ORDERED: DOCU100 PO (17:29)
[2020-12-30] MEDS ORDERED: ESCITALOPRAM OXA5 MG PO (17:30)
[2020-12-30] MEDS ORDERED: IBUP400 PO (17:30)
[2020-12-30] MEDS ORDERED: HYDPAM25 PO (17:30)
[2020-12-30] MEDS ORDERED: GABAPENTIN600 MG PO (17:30)
[2020-12-30] MEDS ORDERED: Ativan1 MG PO (17:31)
[2020-12-30] MEDS ORDERED: DULCOLAX400 MG/51 PO (17:31)
[2020-12-30] MEDS ORDERED: TRAZ150T57 PO (17:31)
[2020-12-30] MEDS ORDERED: ONDA4 PO (17:32)
[2020-12-30] MEDS ORDERED: OXYACE7.5T PO (17:32)
[2020-12-30] MEDS ORDERED: AMIT25 PO (17:32)
[2020-12-30 17:40] LABS: Alanine Aminotransfer (ALT/SGP 17 U/L (12-78); Albumin, Blood 2.9 g/dL (3.4-5.0); Albumin/Globulin Ratio 0.8 (0.8-1.8); Alk Phos 77 U/L (50-136); Anion Gap 10 mmol/L (6-16); Aspartate Aminotrans (AST/SGOT 18 U/L (12-37); Bilirubin, Total 0.5 mg/dL (0.1-1.0); Blood Urea Nitrogen 23 mg/dL (8-24); Bun/Creatinine Ratio 43.7 (12.0-20.0); CO2, Blood 23 mmol/L (21-32); Calcium, Blood 8.4 mg/dL (8.5-10.1); Chloride, Blood 107 mmol/L (98-108); Creatinine, Blood 0.53 mg/dL (0.60-1.20); Globulin, Blood 3.8 g/dL (2.2-4.0); Glomerular Filtration Rate >60 (60-); Glucose, Blood 119 mg/dL (70-99); Potassium, Blood 3.9 mmol/L (3.5-5.5); Sodium, Blood 140 mmol/L (136-145); Total Protein, Blood 6.7 g/dL (6.4-8.2)
[2020-12-30] MEDS ORDERED: ONDA4ODT MM (19:10)
[2020-12-30] MEDS ORDERED: FAMO20 PO (19:10)
== END 2020-12-30 21:42 | disposition home or self-care (01) ==
LOC: ER 16:35
PROVIDERS: Emergency Medicine
DX: K59.00 Constipation, unspecified (principal); R11.2 Nausea with vomiting, unspecified; G35 Multiple sclerosis; Z91.013 Allergy to seafood; Z79.899 Other long term (current) drug therapy
CPT/HCPCS: 74177; 80053; 83690; 85025; 96374; 96375; 99285-25; C9113; J3010; J7030; Q9967

== ENCOUNTER 2021-01-19 01:25 | Inpatient (IN) | payer MEDICARE, OTHER ==
[~2021-01-19] VITALS: Ht 182.9 cm; Wt 54.4 kg
[~2021-01-19 01:25] MED LIST changes: +AMIT25 PO; +BACLOFEN10 M4 PO; +DULCOLAX400 MG/51 PO; +ESCITALOPRAM OXA5 MG PO; +FAMO20 PO; +GABAPENTIN600 MG PO; +HYDPAM25 PO; +ONDA4 PO
[2021-01-19 02:45] LABS: BASOPHILS ABSOLUTE AUTO 0.06 K/mm3 (0.00-0.23); BASOPHILS PERCENT AUTO 1 % (0-2); EOSINOPHILS ABSOLUTE AUTO 0.12 K/mm3 (0.00-0.68); EOSINOPHILS PERCENT AUTO 2 % (0-6); Hematocrit 44.2 % (37.0-53.0); Hemoglobin 14.4 g/dL (13.5-17.5); IMMATURE GRAN ABSOLUTE AUTO 0.01 K/mm3 (0.00-0.10); IMMATURE GRAN PERCENT AUTO 0 % (0-1); LYMPHOCYTES ABSOLUTE AUTO 1.56 K/mm3 (0.84-5.20); LYMPHOCYTES PERCENT AUTO 23 % (21-46); MONOCYTES ABSOLUTE AUTO 0.62 K/mm3 (0.16-1.47); MONOCYTES PERCENT AUTO 9 % (4-13); Mean Corpuscular HGB 31.1 pg (26.0-34.0); Mean Corpuscular HGB Conc 32.6 g/dL (31.5-36.5); Mean Corpuscular Volume 96 fL (80-100); Mean Platelet Volume 8.7 fL (9.1-12.4); NEUTROPHILS ABSOLUTE AUTO 4.32 K/mm3 (1.96-9.15); NEUTROPHILS PERCENT AUTO 65 % (41-73); Platelet Count 357 K/mm3 (150-400); RDW Coefficient Variation 12.5 % (11.7-14.2); RDW Standard Deviation 43.8 fL (35.1-46.3); Red Blood Cell Count 4.63 M/mm3 (4.30-5.90); White Blood Cell Count 6.69 K/mm3 (4.00-11.30)
[2021-01-19 02:59] LABS: Source, Urine Catheter
[2021-01-19 03:02] LABS: Blood, Urine 4+ (Neg); Glucose Qualitative, Urine Neg (Neg); Ketones, Urine 1+ (Neg); Leukocyte Esterase, Urine 1+ (Neg); Nitrite, Urine Neg (Neg); Protein, Urine 2+ (Neg); Specific Gravity, Urine 1.025 (1.003-1.022); Urobilinogen, Urine NORM (Normal)
[2021-01-19 03:03] LABS: Alanine Aminotransfer (ALT/SGP 24 U/L (12-78); Albumin, Blood 2.8 g/dL (3.4-5.0); Albumin/Globulin Ratio 0.6 (0.8-1.8); Alk Phos 93 U/L (50-136); Anion Gap 5 mmol/L (6-16); Aspartate Aminotrans (AST/SGOT 17 U/L (12-37); Bilirubin, Total 0.3 mg/dL (0.1-1.0); Blood Urea Nitrogen 18 mg/dL (8-24); Bun/Creatinine Ratio 24.6 (12.0-20.0); CO2, Blood 29 mmol/L (21-32); Calcium, Blood 9.1 mg/dL (8.5-10.1); Chloride, Blood 106 mmol/L (98-108); Creatinine, Blood 0.73 mg/dL (0.60-1.20); Ethanol (Alcohol), Blood, Med <3 mg/dL; Globulin, Blood 4.4 g/dL (2.2-4.0); Glomerular Filtration Rate >60 (60-); Glucose, Blood 100 mg/dL (70-99); Salicylate 2.8 mg/dL (2.8-20.0); Sodium, Blood 140 mmol/L (136-145); Total Protein, Blood 7.2 g/dL (6.4-8.2)
[2021-01-19 03:22] LABS: U Amphetamine Screen Not Detected; U Barbituate Screen Not Detected; U Benzodiazapine Screen DETECTED; U Buprenorphine Screen Not Detected; U Cannabinoids Screen DETECTED; U Cocaine Screen Not Detected; U Methadone Screen Not Detected; U Methamphetamine Screen Not Detected; U Opiates Screen Not Detected; U Oxycodone Screen DETECTED; U Phencyclidine Screen Not Detected; U Propoxyphene Screen Not Detected
[2021-01-19 03:29] LABS: Acetaminophen, Random <2.0 ug/mL (10.0-30.0)
[2021-01-19 03:29] LABS: Appearance, Urine Clear (Clear); Bilirubin, Urine 1+ (Neg); Color, Urine Amber (P-Yellow)
[2021-01-19 03:31] LABS: Bacteria Rare /hpf; Red Blood Cells, Urine 25-50 /hpf (0-2); Squamous Epithelial Cells Not Seen /hpf (Few); White Blood Cells, Urine Rare /hpf (0-5)
[2021-01-19 07:44] LABS: Influenza A, PCR NEGATIVE (NEGATIVE); Influenza B, PCR NEGATIVE (NEGATIVE); Resp Syncytial Virus, PCR NEGATIVE (NEGATIVE); SARS-Cov-2 (COVID-19) PCR, MMC NEGATIVE (NEGATIVE)
[2021-01-19] MEDS ORDERED: CLEOCIN T60 G1 TOP (08:44)
[2021-01-19] MEDS ORDERED: Tetrahydrozolin15 ML BOTHEYES (08:45)
--- NOTE | 2021-01-19 11:30 | NUR ---
Pt names his step mom, Hailey Bishop [phone] as his NOK and surrogate decision maker. This is a change from previous NOK, his dad, who's health is failing. I spoke with Hailey and she is agreeable to this. Pt's dad is currently in our hospital with heart issues. Contact # for pt's [facility] is [phone], Sales Development Executive Christie Johnson #[phone] Dr Jenny Grossman [phone]. She will be contacted Tomorrow during reg business hours with request for hospice referral per pt's request. Pt was evaluated and declined per [facility] 6 months ago and he would like to have [facility] hospice visit him at this time, pending PCP 's orders. 1000 - Pal Care consult order received from IRA Reyes in ER Care managment. Case conferenced with Eric re: current ER visit issues, pt status, concerns. I reviewed EMR including my previous notes from 2019 and Pal Care team notes from 2019 to present prior to visiting pt in ER rm#[id number] this am. Pt is receptive to a visit, engaged in conversation, alert and oriented x 4. When asked about his PO intake and suicidal ideation, pt shares that he is not so much suicidal as "done with living" due to disability, progression of MS with constant, chronic pain and severely limited independence and ability with ADL's. He is very happy in the community living situation he currently resides in, [facility] in [place]. Pt is intermittently smiling with conversation and also exhibiting nonverbal indicators of pain and anxiety. He states pain medication given earlier was effective in making pain "tolerable" and he does not want any additional medication now. Long discussion with pt re: goals of care, his wishes, past experience with hospice referral and last visit with PCP. He would like the support of hospice for himself and his caregivers as his condition progresses and he nears EOL. Plan arrived at with pt to contact his PCP tomorrow re: [facility] and t/c to his step mom and his AF care providers re: change in NOK to Hailey Bishop and to explain s/s and progression of MS to caregivers to include the presence of the hallucinations pt has been having. He does not feel distressed by these hallucinations and in fact, states he enjoys them. He does not want to be medicated for the hallucinations either. He wants me to confirm with [facility] that they are comfortable with him being on hospice and providing EOL care with hospice agency support and involvement. I did speak with Hailey Edna and learned that Bill's father is currently a pt also. She asked me to share that with Bill, which we did thru ER and staff. She verbalized acceptance of being Bill's surrogate medical decision maker if needed and verbalized being in agreement with his wishes for DNR and hospice care. [facility] CG, Cornelio Brown gave me name and number of [facility] gas welder to review pt's desired Plan of care with tomorrow and I updated Cornelio Brown also. Eric in ER updated on all of above. ER admitting changed NOK info on pt's face sheet in [facility]. Plan to f/u with PCP and [facility] gas welder tomorrow am.
--- NOTE | 2021-01-20 08:22 | NUR ---
[facility] Out patient f/u call to [facility]. I was unable to leave a message for Dr Fitzgerald during off hours. This am, spoke with Hannah Ragland of [facility]. She will contact Bill's PCP this am & request evaluation for hospice with [facility]. I will make contact with pt's [facility] primary cg and cabinet installer of [facility], where Bill lives.
== END 2021-01-19 13:29 | disposition home or self-care (01) | DRG 885 ==
LOC: ER 01:25 → ERHOLD 08:45
PROVIDERS: Student in an Organized Health Care Education/Training Program; ADMIT Family Medicine
DX: F39 Unspecified mood [affective] disorder (principal); R45.851 Suicidal ideations; F29 Unspecified psychosis not due to a substance or known physiological condition; Z20.822 Contact with and (suspected) exposure to COVID-19; Z66 Do not resuscitate; G35 Multiple sclerosis; G89.29 Other chronic pain; Z91.013 Allergy to seafood; Z79.899 Other long term (current) drug therapy; Z98.890 Other specified postprocedural states
CPT/HCPCS: 0241U; 36415; 51701; 80053; 81001; 85025; 99285; A9270; G0378; G0480; Q3014

== ENCOUNTER 2021-02-12 08:42 | Emergency (ER) | payer MEDICARE, OTHER ==
[~2021-02-12] VITALS: Ht 182.9 cm; Wt 63.5 kg
[~2021-02-12 08:42] MED LIST changes: +CLEOCIN T60 G1 TOP; +Tetrahydrozolin15 ML BOTHEYES
[2021-02-12] MEDS ORDERED: ESCI10 PO (08:57)
--- NOTE | 2021-02-12 11:27 | NUR ---
Pt very anxious and angry states they have not been feeding him. But he cannot tolerate food. Gave him sprite that worked. Increased his pain medication. may need higher level of care will contact hospice.
--- NOTE | 2021-02-12 15:37 | NUR ---
pt stated intakeon wednesday to hospice. called dung no svcheduled intake. called [facility] to confirm intake and called pt detention. [facility] stated they needed face to face with his primary on wednesday then they will order hospice. called [facility] pillowcase cleaner to see if they could facilitatesonner intake. Pt geriatric care manager states they did not have a preferance. Shivani franklin and [facility] working on facilitating an intake.
== END 2021-02-12 11:42 | disposition home or self-care (01) ==
LOC: ER 08:42
DX: G35 Multiple sclerosis (principal); G89.29 Other chronic pain; R45.851 Suicidal ideations; Z51.5 Encounter for palliative care; Z91.013 Allergy to seafood; Z79.899 Other long term (current) drug therapy
CPT/HCPCS: 99284; A9270